=== PATIENT | male | born 1985 | race Caucasian/White ===

== ENCOUNTER 2021-09-14 15:04 | Inpatient (IN) ==
--- NOTE | 2021-09-14 15:41 | XRay Report ---
XR chest 1V portable CLINICAL HISTORY: Sepsis. Follow-up airspace opacities with history of cough COMPARISON STUDY: 09/08/2021 TECHNIQUE: 1 view of the chest FINDINGS: Single frontal view of the chest demonstrates the cardiomediastinal silhouette to be within normal li mits. Compared to the previous examination, there are now extensive patchy interstitial and alveolar opacities are present bilaterally. The findings are most characteristic of a viral type pneumonitis. Covid 19 pneumonia should be excluded. There is no evidence for pleural effusion. There is no evidenc e for vascular congestion. There is no acute osseous pathology. IMPRESSION: Compared to the previous examination, there are now extensive patchy interstitial and neno eolar opacities bilaterally, left greater than right, characteristic of a viral type pneumonitis and probable Covid 19 pneumonia. ACT 112: Negative or not required by law. Electronically signed by: Nagi Crawford M.D. 09/14/2021 3:40 PM
[2021-09-14] MEDS ORDERED: dexAMETHasone**PF** 10 MG/ML VIAL IV ONE (15:42)
--- NOTE | 2021-09-14 15:48 | Emergency Department Note ---
Impression & Plan 2019 novel coronavirus-infected pneumonia (NCIP), Hypoxia, Acute respiratory distress ED Provider Note NAME: JB MARRERO AGE: 36 SEX: M : 1985 ARRIVES VIA: Walk-In INFORMANT: Patient, ED PROVIDER(S): Juan Gallo DO CHIEF COMPLAINT: Shortness of breath HPI: The patient is a 36-year-old male who presented to the emergency department for an evaluation of shortness of breath. The patient was seen in our facility recently with similar complaints. He has had symptoms for approximately 1 week. He started noticing cough and difficulty breathing. He was seen in our facility and had an extensive work-up which included CT of the chest. He was noted to have pneumonia and was started on antibiotics. At that time his Covid test was pending. He was called 24 hours later and was told his Covid test was positive. The patient has been trying to manage the symptoms at home. Over the last 48 hours he has noticed significant increase in his symptoms including shortness of breath and cough. The patient is a former smoker. He does not normally wear oxygen. He states he has very severe symptoms especially with any ambulation. He is been using his outpatient medications without relief. ROS: See above HPI for pertinent positives & negatives. A total of 10 systems r eviewed and were otherwise negative. PAST MEDICAL HISTORY: See Below PAST SURGICAL HISTORY: See Below FAMILY HISTORY: See Below SOCIAL HISTORY: See Below HOME MEDICATIONS: See Below ALLERGIES: See Below VITALS: See Below PHYSICAL EXAMINATION: GENERAL: Patient is awake alert in no acute distress patient is resting comfortably and showing no signs of anxiety EYES: The conjunctivae are clear. The pupils are round and reactive. EARS, NOSE, MOUTH AND THROAT: The nose is without any evidence of any deformity. Mucous membranes are moist. Tongue is midline. NECK: The neck is nontender and supple. RESPIRATORY: Near absent breath sounds are noted throughout. Shallow respirations were noted. There were crackles noted in all lung [place]. CARDIOVASCULAR: Tachycardic rate with regular rhythm was noted. There is no murmur. GASTROINTESTINAL: The abdomen is soft. Abdomen is nontender. MUSCULOSKELETAL/EXTREMITIES: There is no evidence of gross deformity full range of motion is noted in the hips and shoulders. SKIN: Skin is warm and dry. Trace pedal edema was noted bilaterally. NEUROLOGIC: Patient is awake alert and oriented x3. MEDICAL DECISION MAKING: The patient is a 36-year-old male who presented to the emergency department for an evaluation of difficulty breathing. The patient was seen in our facility and diagnosed with COVID-19 6 days ago. Initially he was seen and diagnosed as pneumonia as his Covid swab was pending. The patient was started on antibiotics as well as other medications. He returns today because of worsening symptoms. He noted that his difficulty breathing has significantly worsened especially over the course the last 48 hours. He was found to have oxygen saturation that was very low. He was brought directly back to room A9. He was evaluated by myself and was placed on submental oxygen. He was then placed on high flow nasal cannula. The patient's condition slowly improved. I discussed the patient's laboratory and radiographic studies with him. Given his degree of symptoms I discussed his case with the on-call [facility]ist. They have agreed to evaluate the patient in the emergency department for further management and disposition. The patient did have a complete work-up 6 days ago which included a CT angiography of the chest. The patient was also started on dexamethasone in the emergency department. Triage Nursing notes reviewed. Prior medical records reviewed Vital Signs: reviewed and remarkable for hypoxia and tachycardia. Differential diagnosis: Reactive airway disease, pneumonia, pneumothorax, COPD, CHF, infections, cardiac ischemia, pulmonary embolism, musculoskeletal, gastrointestinal, as well as other pathologies. ER treatment provided: See below Diagnostics interpreted by me: ECG: EKG was obtained in the emergency department. My interpretation is sinus tachycardia at 109 bpm. There is no ectopy. There is no acute ST segment abnormalities noted. This was compared to a tracing from November 282019. There was an increase in the ventricular rate otherwise no specific changes were noted. Cardiac Monitoring: An order was placed for continuous cardiac monitoring. The monitor shows a rate of 110 bpm with sinus tachycardia. Laboratory studies: As stated above and show below. Imaging studies: See below Consultation(s): I discussed this case with Dr. Horton who is on-call for the [facility] group. She is agreed to evaluate the patient in the emergency department for further management and disposition. ED COURSE: Procedures: none Critical Care: I have personally spent greater than 35 minutes of critical care time in the direct management of this patient. This includes bedside care, interpretation of diagnostic studies, and testing, discussion with consultants, patient, and family members, and other required patient management activities. This 35 minutes is in excess of all separately billable procedures. Past Med/Surg History Medical History Open right arm fracture Pilonidal cyst Pneumonia due to COVID-19 virus Surgical History H/O hernia repair Family History Other Family history non-contributory Family history unknown Foster child Social History Smoking Status: Former smoker Age Started Using Tobacco: 11; Age Quit Using Tobacco: 30; packs per day: 2; Hx Alcohol Use: No Hx Substance Use: No Preferred Language: Czech marital status: Single Current Living Situation: Alone Feels Safe at Home: Yes Diet Comment: low sugar Dental Care, Regularly: No Physical Activity Frequency: 3-4 Times per Week Seatbelt Use: never Sunscreen Use: No Allergies Allergies Allergy/AdvReac Type Severity Reaction Status Date / Time No Known Allergies Allergy Unverified 09/08/21 14:47 Home Meds Previous Rx's Medication Instructions Recorded albuterol sulfate 90 mcg/actuation 2 inh INHALATION Q6H PRN #6.7 g 09/08/21 aerosol inhaler (Ventolin HFA) azithromycin 250 mg tablet See Rx Instructions .ROUTE 09/08/21 (Zithromax) .COMPLEX #6 tab cefdinir 300 mg capsule 300 mg PO BID 7 Days #14 cap 09/08/21 Results & Data (ED) Vital Signs Vital Signs - 24 hr 09/14/21 15:18 09/14/21 15:54 09/14/21 16:32 Temperature 37.1 C Temperature Source Temporal Artery Scan Pulse Rate 125 H 110 H Pulse Rate [Right Finger] 122 H 110 H Respiratory Rate 18 20 22 Respiratory Effort / Characteristics Non-Labored Non-Labored Spontaneous Respiratory Depth Normal Blood Pressure 157/92 H Blood Pressure [Left Arm] 110/81 Blood Pressure Mean 113 Blood Pressure Mean [Left Arm] 90 Blood Pressure Position [Left Arm] Sitting Pulse Oximetry 53 L 93 91 Oxygen Delivery Method Room Air High Flow Nasal Cannula High Flow Nasal Cannula Oxygen Flow Rate 30 Fraction of Inspired Oxygen 50 Sepsis Recent Fever Within 48 Hours No Sepsis New/Unexplained Change in Mental Status No Sepsis Action Taken by Nursing No Action Required Pulse Oximetry Post Tiitration 91 Home Medications Current Medication List: was personally reviewed by me Laboratory Data Attestation: I reviewed the patient's lab results. Result diagrams: 09/14/21 15:43 09/14/21 15:43 Lab Results 09/14/21 09/14/21 09/14/21 Range/Units 15:43 15:43 15:43 WBC 6.35 (4.8-10.8) K/uL RBC 5.48 (4.7-6.1) M/uL Hgb 15.6 (14.0-18.0) g/dL Hct 46.5 (42-52) % MCV 84.9 (80-100) fL MCH 28.5 (25-34) pg MCHC 33.5 (32-36) g/dL RDW Std Deviation 43.1 (36.4-46.3) fL RDW Coeff of Nydia 13.8 (11.5-14.5) % Plt Count 194 (130-400) K/uL MPV 9.8 (7.4-10.4) fL Immature Gran % (Auto) 0.6 % Neut % (Auto) 76.5 % Lymph % (Auto) 17.0 % Platte % (Auto) 5.4 % Eos % (Auto) 0.3 % Baso % (Auto) 0.2 % Neut # (Auto) 4.86 (1.4-6.5) K/uL Lymph # (Auto) 1.08 L (1.2-3.4) K/uL Platte # (Auto) 0.34 (0.11-0.59) K/uL Eos # (Auto) 0.02 (0-0.5) K/uL Baso # (Auto) 0.01 (0-0.2) K/uL Immature Gran # (Auto) 0.04 H (0.00-0.02) K/uL PT 11.8 (9.0-12.0) Seconds INR 1.2 H (0.9-1.1) APTT 28.4 (21.0-31.0) Seconds PTT Ratio 1.1 VBG pH (7.36-7.41) VBG pCO2 (38-50) mmHg VBG pO2 mmHg VBG HCO3 mmol/L VBG O2 Saturation % VBG Base Excess mEq/L Barometric Pressure mm/Hg Sodium 136 (136-145) mmol/L Potassium 3.6 (3.5-5.1) mmol/L Chloride 98 (98-107) mmol/L Carbon Dioxide 29 (21-32) mmol/L Anion Gap 9.0 (3-11) BUN 9 (7-18) mg/dl Creatinine 0.62 (0.6-1.4) mg/dl Est Cr Clr Drug Dosing 256.2 ml/min Est GFR ( Amer) 147.9 ml/min Est GFR (Non-Af Amer) 127.6 ml/min BUN/Creatinine Ratio 15.0 (10-20) Glucose 120 H (70-99) mg/dl Lactate (0.4-2.0) mmol/L Calcium 8.5 (8.5-10.1) mg/dl Magnesium 2.2 (1.8-2.4) mg/dl Total Bilirubin 0.5 (0.2-1) mg/dl AST 47 H (15-37) U/L ALT 46 (12-78) U/L Alkaline Phosphatase 49 (45-117) U/L Troponin I < 0.015 (0-0.045) ng/ml NT-Pro-B Natriuret Pep 97 (0-450) pg/ml Total Protein 7.7 (6.4-8.2) gm/dl Albumin 2.6 L (3.4-5.0) gm/dl Globulin 5.1 H (2.5-4.0) gm/dl Albumin/Globulin Ratio 0.5 L (0.9-2) Procalcitonin (0-0.5) ng/ml 09/14/21 09/14/21 09/14/21 Range/Units 15:46 15:47 15:47 WBC (4.8-10.8) K/uL RBC (4.7-6.1) M/uL Hgb (14.0-18.0) g/dL Hct (42-52) % MCV (80-100) fL MCH (25-34) pg MCHC (32-36) g/dL RDW Std Deviation (36.4-46.3) fL RDW Coeff of Nydia (11.5-14.5) % Plt Count (130-400) K/uL MPV (7.4-10.4) fL Immature Gran % (Auto) % Neut % (Auto) % Lymph % (Auto) % Platte % (Auto) % Eos % (Auto) % Baso % (Auto) % Neut # (Auto) (1.4-6.5) K/uL Lymph # (Auto) (1.2-3.4) K/uL Platte # (Auto) (0.11-0.59) K/uL Eos # (Auto) (0-0.5) K/uL Baso # (Auto) (0-0.2) K/uL Immature Gran # (Auto) (0.00-0.02) K/uL PT (9.0-12.0) Seconds INR (0.9-1.1) APTT (21.0-31.0) Seconds PTT Ratio VBG pH 7.44 H (7.36-7.41) VBG pCO2 49 (38-50) mmHg VBG pO2 34 mmHg VBG HCO3 32 mmol/L VBG O2 Saturation 62.6 % VBG Base Excess 6.7 mEq/L Barometric Pressure 726.5 mm/Hg Sodium (136-145) mmol/L Potassium (3.5-5.1) mmol/L Chloride (98-107) mmol/L Carbon Dioxide (21-32) mmol/L Anion Gap (3-11) BUN (7-18) mg/dl Creatinine (0.6-1.4) mg/dl Est Cr Clr Drug Dosing ml/min Est GFR ( Amer) ml/min Est GFR (Non-Af Amer) ml/min BUN/Creatinine Ratio (10-20) Glucose (70-99) mg/dl Lactate 1.5 (0.4-2.0) mmol/L Calcium (8.5-10.1) mg/dl Magnesium (1.8-2.4) mg/dl Total Bilirubin (0.2-1) mg/dl AST (15-37) U/L ALT (12-78) U/L Alkaline Phosphatase (45-117) U/L Troponin I (0-0.045) ng/ml NT-Pro-B Natriuret Pep (0-450) pg/ml Total Protein (6.4-8.2) gm/dl Albumin (3.4-5.0) gm/dl Globulin (2.5-4.0) gm/dl Albumin/Globulin Ratio (0.9-2) Procalcitonin < 0.05 (0-0.5) ng/ml Administered Medications Discontinued Medications Dexamethasone Sodium Phosphate (DexamethasonePf 10 Mg/Ml Vial) 10 mg IV NOW ONE Stop: 09/14/21 15:43 Last Admin: 09/14/21 16:31 Dose: 10 mg Documented by: [id number] Imaging Data Radiologist's Impression: Chest X-Ray 09/14/21 15:24 XR chest 1V portable CLINICAL HISTORY: Sepsis. Follow-up airspace opacities with history of cough COMPARISON STUDY: 09/08/2021 TECHNIQUE: 1 view of the chest FINDINGS: Single frontal view of the chest demonstrates the cardiomediastinal silhouette to be within normal limits. Compared to the previous examination, there are now extensive patchy interstitial and alveolar opacities are present bilaterally. The findings are most characteristic of a viral type pneumonitis. Covid 19 pneu monia should be excluded. There is no evidence for pleural effusion. There is no evidence for vascular congestion. There is no acute osseous pathology. IMPRESSION: Compared to the previous examination, there are now extensive patchy interstitial and alveolar opacities bilaterally, left greater than right, characteristic of a viral type pneumonitis and probable Covid 19 pneumonia. ACT 112: Negative or not required by law. Electronically signed by: Nagi Crawford M.D. 09/14/2021 3:40 PM Discharge Plan Visit Data Chief Complaint: Shortness of Breath/Dyspnea Stated Complaint: SOB,COVID + ED Provider: Juan Gallo Discharge Problem: 2019 novel coronavirus-infected pneumonia (NCIP), Hypoxia, Acute respiratory distress Patient Disposition: Being Evaluated by Hospitalist Forms Stand Alone Forms: [facility] Prescriptions Prescriptions: No Action cefdinir 300 mg capsule 300 mg PO BID 7 Days Qty: 14 RF: 0 azithromycin [Zithromax] 250 mg tablet See Rx Instructions .ROUTE .COMPLEX Qty: 6 RF: 0 albuterol sulfate [Ventolin HFA] 90 mcg/actuation HFA aerosol inhaler 2 inh inhalation Q6H PRN (Reason: shortness of breath or wheezing) Qty: 6.7 RF: 0 Referrals Referrals: PCP,NO [Primary Care Provider] -
[2021-09-14 15:59] LABS: Basophils # (auto) 0.01 K/uL (0-0.2); Basophils % (auto) 0.2 %; Eosinophils # (auto) 0.02 K/uL (0-0.5); Eosinophils % (auto) 0.3 %; Hematocrit (blood only) 46.5 % (42-52); Hemoglobin 15.6 g/dL (14.0-18.0); Immature Granulocytes # (auto) 0.04 K/uL (0.00-0.02); Immature Granulocytes % (auto) 0.6 %; Lymphocytes # (auto) 1.08 K/uL (1.2-3.4); Mean Corpuscular Hemoglobin 28.5 pg (25-34); Mean Corpuscular Hgb Conc 33.5 g/dL (32-36); Mean Corpuscular Volume 84.9 fL (80-100); Mean Platelet Volume 9.8 fL (7.4-10.4); Monocytes # (auto) 0.34 K/uL (0.11-0.59); Monocytes % (auto) 5.4 %; Neutrophils # (auto) 4.86 K/uL (1.4-6.5); Neutrophils % (auto) 76.5 %; Platelet Count 194 K/uL (130-400); RDW Coefficient of Variation 13.8 % (11.5-14.5); RDW Standard Deviation 43.1 fL (36.4-46.3); Red Blood Count 5.48 M/uL (4.7-6.1); White Blood Count 6.35 K/uL (4.8-10.8)
[2021-09-14 16:02] LABS: Base Excess VBG 6.7 mEq/L; Oxygen Saturation VBG 62.6 %; pH VBG 7.44 (7.36-7.41)
[2021-09-14 16:10] LABS: INR 1.2 (0.9-1.1); Partial Thromboplastin Ratio 1.1; Partial Thromboplastin Time 28.4 Seconds (21.0-31.0); Prothrombin Time 11.8 Seconds (9.0-12.0)
[2021-09-14 16:19] LABS: Alanine Aminotransferase 46 U/L (12-78); Albumin Level 2.6 gm/dl (3.4-5.0); Aspartate Aminotransferase 47 U/L (15-37); Blood Urea Nitrogen 9 mg/dl (7-18); Calcium 8.5 mg/dl (8.5-10.1); Carbon Dioxide 29 mmol/L (21-32); Chloride 98 mmol/L (98-107); Creatinine Clr Calc Pharmacy 256.2 ml/min; Est GFR (African American) 147.9 ml/min; Est GFR (Non-African American) 127.6 ml/min; Glucose 120 mg/dl (70-99); Magnesium 2.2 mg/dl (1.8-2.4); Potassium 3.6 mmol/L (3.5-5.1); Sodium 136 mmol/L (136-145)
[2021-09-14 16:24] LABS: Albumin Globulin Ratio 0.5 (0.9-2); Alkaline Phosphatase 49 U/L (45-117); Bilirubin,Total 0.5 mg/dl (0.2-1); Globulin 5.1 gm/dl (2.5-4.0); NT Pro B Type Natriuretic Pept 97 pg/ml (0-450); Total Protein 7.7 gm/dl (6.4-8.2); Troponin I < 0.015 ng/ml (0-0.045)
--- NOTE | 2021-09-14 17:20 | Electrocardiogram Report ---
Test Reason : Blood Pressure : / mmHG Vent. Rate : 109 BPM Atrial Rate : 109 BPM P-R Int : 130 ms QRS Dur : 094 ms QT Int : 336 ms P-R-T Axes : 049 013 038 degrees QTc Int : 452 ms Poor data quality, interpretation may be adversely affected Sinus tachycardia Otherwise normal ECG When compared with ECG of 28-NOV-2019 13:58, No significant change was found Confirmed by Abe Lopez ([id number]) on 09/14/2021 5:19:43 PM Referred By: REFERRED SELF Confirmed By:Harris Lopez
--- NOTE | 2021-09-14 18:37 | History & Physical Report ---
Date of Service September 14, 2021 Assessment & Plan (1) 2019 novel coronavirus-infected pneumonia (NCIP): Plan: Patient now on day 10-11 of symptoms at the time of admission. With worsening Covid pneumonia and acute respiratory failure with hypoxia. He completed 6 days of azithromycin and cefdinir as an outpatient, procalcitonin is now negative-do not suspect bacterial pneumonia at this point With morbid obesity and DM 2 as risk factors for severe disease for him. He is unvaccinated. CRP is significantly elevated at 15 and AST mildly elevated Was requiring high flow nasal cannula at 30 L and 50% FiO2 immediately upon arrival in the ER for pulse ox in the 50s on room air He is outside of the window for treatment with Remdesivir -Admit to PCU on COVID cautions -Start dexamethasone 6 mg IV once daily x10-day course -Start baricitinib 4 mg p.o. once daily x14-day course for shorter course if discharged prior to then, should be discontinued if requires intubation -Start incentive spirometer and flutter valve -Start duo nebs scheduled 4 times daily -Encourage prone or side positioning -Continue high flow nasal cannula for now, can progress to CPAP or mechanical ventilation if needed -Lovenox 0.5 mg/KG SQ twice daily for DVT prophylaxis -Start Protonix 40 mg once daily for indigestion which will likely be worsened by corticosteroids -Follow CBC, CMP, CRP in the morning (2) Hypoxia: Plan: As above, secondary to Covid-19 with pneumonia Also has a history of [id number] smoking-quit 6 years ago Continue duo nebs, steroids, pulmonary toilet (3) Obesity: Plan: BMI 49.8 This is a significant risk factor for severe disease -Needs weight loss (4) Hyperglycemia: Plan: Was counseled in 2020 to have further testing for diabetes after having a random blood glucose in the 400s Blood sugar here so far is 122, but given that he will be on corticosteroids, will add Accu-Cheks and supplemental NovoLog May need to add on Lantus or NPH if develops significant hyperglycemia Check hemoglobin A1c in the morning ADA diet (5) Former smoker: Plan: As noted above He quit at age 30 (6) Transaminitis: Plan: Mild elevation of AST, likely secondary to Covid-19 Follow LFTs Plan: DVT prophylaxis-Lovenox 80 mg/KG SQ twice daily, SCDs Disposition-admit to PCU Full code Patient designates his girlfriend, Cara Carrasco, as his healthcare power of commonwealth attorney-I advised him to discuss with service excellence about making this official on paper. He reports he does have some immediate family members that are living but he has no contact with them and does not know how to reach them. History of Present Illness Chief Complaint: Shortness of breath, Covid Primary Care Provider: NO PCP This patient is a 36-year-old male with a history of morbid obesity, diabetes mellitus type 2, and a [id number] smoking history, who does not follow routinely with the PCP, who presents to the ER with worsening shortness of breath. He was seen in the ER on 09/08 and diagnosed with suspected Covid-19 with pneumonia (it took 24 hours for the Covid test to be resulted) but was discharged home on cefdinir, azithromycin, and an albuterol inhaler. His pulse ox at that time was 92-93% on room air. He was discharged home with a pulse ox as well. His Covid-19 test came back positive the next day and he was contacted with the results. Of note, he is unvaccinated for Covid-19. His symptoms originally started around 09/03-09/04 with decreased appetite, cough with some brownish phlegm, sweats/chills and body aches. He returned to the ER today with worsening shortness of breath that was much worse with any ambulation. He tried taking the albuterol inhaler without relief. In the ER, his pulse ox was noted to be in the 50s on room air with a good waveform and he was placed on high flow nasal cannula with improvement of his pulse ox to the low 90s. He reports even when his POx was in the 50s, he denies feeling SOB, but reports feeling very lightheaded. His chest x-ray showed significant progression with bilateral multifocal infiltrates left greater than right. His CBC, VBG, and CMP were all within normal limits except for a mild elevation in AST to 47. A lactate was normal, troponin was negative, procalcitonin was negative, and proBNP was normal at 97. His ECG showed sinus tachycardia with rate of 109, otherwise normal. He will be admitted for Covid-19 with pneumonia and acute respiratory failure with hypoxia. Allergies Allergy/AdvReac Type Severity Reaction Status Date / Time No Known Allergies Allergy Unverified 09/08/21 14:47 Home Medications Medication Instructions Recorded Confirmed Type albuterol sulfate 90 mcg/actuation 2 inh INHALATION Q6H PRN #6.7 g 09/08/21 09/14/21 Rx aerosol inhaler (Ventolin HFA) azithromycin 250 mg tablet See Rx Instructions .ROUTE 09/08/21 09/14/21 Rx (Zithromax) .COMPLEX #6 tab cefdinir 300 mg capsule 300 mg PO BID 7 Days #14 cap 09/08/21 09/14/21 Rx Past Med/Surg History Medical History (Updated 09/14/21 @ 18:37 by Gauri Horton MD) Former smoker Obesity Open right arm fracture Pilonidal cyst Pneumonia due to COVID-19 virus Surgical History H/O hernia repair Family History Other Family history non-contributory Family history unknown Foster child Social History Smoking Status: Former smoker Age Started Using Tobacco: 11; Age Quit Using Tobacco: 30; packs per day: 2; Hx Alcohol Use: No Hx Substance Use: No Preferred Language: Lithuanian marital status: Single Current Living Situation: Alone Feels Safe at Home: Yes Diet Comment: low sugar Dental Care, Regularly: No Physical Activity Frequency: 3-4 Times per Week Seatbelt Use: never Sunscreen Use: No Review of Systems Review of Systems: All systems reviewed & are unremarkable except as noted in HPI & below he denies chest pain, no diarrhea now but did have some after taking azithromycin no urinary issues no nausea or vomiting but has had decreased appetite He does report significant indigestion that has worsened since having Covid-has been taking Pepcid Physical Exam Constitutional: WD/WN, vitals as above + morbidly obese Eyes: PERRL, conjunctivae normal, anicteric sclerae ENMT: external ear and nose normal, oropharynx normal Neck: trachea midline, no thyromegaly Respiratory: normal respiratory effort (With nasal cannula in place); no cough Auscultation: + diminished lung sounds (Throughout all lung calhoun) and + crackles (Lower lung calhoun); no rhonchi and no wheezes Cardiovascular: RRR, no murmur, no edema Chest (Breasts): Chest: normal inspection of chest Gastrointestinal (Abdomen): normal bowel sounds, soft, nontender, no hepatosplenomegaly Musculoskeletal: Extremities: extremities normal to inspection; no cyanosis and no clubbing Skin: no rashes, warm and dry Neurologic: moves all extremities and awake; no focal motor deficits Psychiatric: A+Ox3, euthymic affect Lymphatic: no lymphedema Results & Data Results & Data ([facility]) Vital Signs (Past 12 Hours) Vital Signs Temp Pulse Pulse Resp BP BP Pulse Ox 09/14/21 16:32 110 H 110 H 22 110/81 91 09/14/21 15:54 122 H 20 93 09/14/21 15:18 37.1 C 125 H 18 157/92 H 53 L Laboratory Results 09/14/21 09/14/21 09/14/21 Range/Units 15:47 15:47 15:46 WBC (4.8-10.8) K/uL RBC (4.7-6.1) M/uL Hgb (14.0-18.0) g/dL Hct (42-52) % MCV (80-100) fL MCH (25-34) pg MCHC (32-36) g/dL RDW Std Deviation (36.4-46.3) fL RDW Coeff of Nydia (11.5-14.5) % Plt Count (130-400) K/uL MPV (7.4-10.4) fL Immature Gran % (Auto) % Neut % (Auto) % Lymph % (Auto) % Valencia % (Auto) % Eos % (Auto) % Baso % (Auto) % Neut # (Auto) (1.4-6.5) K/uL Lymph # (Auto) (1.2-3.4) K/uL Valencia # (Auto) (0.11-0.59) K/uL Eos # (Auto) (0-0.5) K/uL Baso # (Auto) (0-0.2) K/uL Immature Gran # (Auto) (0.00-0.02) K/uL PT (9.0-12.0) Seconds INR (0.9-1.1) APTT (21.0-31.0) Seconds PTT Ratio VBG pH 7.44 H (7.36-7.41) VBG pCO2 49 (38-50) mmHg VBG pO2 34 mmHg VBG HCO3 32 mmol/L VBG O2 Saturation 62.6 % VBG Base Excess 6.7 mEq/L Barometric Pressure 726.5 mm/Hg Sodium (136-145) mmol/L Potassium (3.5-5.1) mmol/L Chloride (98-107) mmol/L Carbon Dioxide (21-32) mmol/L Anion Gap (3-11) BUN (7-18) mg/dl Creatinine (0.6-1.4) mg/dl Est Cr Clr Drug Dosing ml/min Est GFR ( Amer) ml/min Est GFR (Non-Af Amer) ml/min BUN/Creatinine Ratio (10-20) Glucose (70-99) mg/dl Lactate 1.5 (0.4-2.0) mmol/L Calcium (8.5-10.1) mg/dl Magnesium (1.8-2.4) mg/dl Total Bilirubin (0.2-1) mg/dl AST (15-37) U/L ALT (12-78) U/L Alkaline Phosphatase (45-117) U/L Troponin I (0-0.045) ng/ml NT-Pro-B Natriuret Pep (0-450) pg/ml Total Protein (6.4-8.2) gm/dl Albumin (3.4-5.0) gm/dl Globulin (2.5-4.0) gm/dl Albumin/Globulin Ratio (0.9-2) Procalcitonin < 0.05 (0-0.5) ng/ml 09/14/21 09/14/21 09/14/21 Range/Units 15:43 15:43 15:43 WBC 6.35 (4.8-10.8) K/uL RBC 5.48 (4.7-6.1) M/uL Hgb 15.6 (14.0-18.0) g/dL Hct 46.5 (42-52) % MCV 84.9 (80-100) fL MCH 28.5 (25-34) pg MCHC 33.5 (32-36) g/dL RDW Std Deviation 43.1 (36.4-46.3) fL RDW Coeff of Nydia 13.8 (11.5-14.5) % Plt Count 194 (130-400) K/uL MPV 9.8 (7.4-10.4) fL Immature Gran % (Auto) 0.6 % Neut % (Auto) 76.5 % Lymph % (Auto) 17.0 % Valencia % (Auto) 5.4 % Eos % (Auto) 0.3 % Baso % (Auto) 0.2 % Neut # (Auto) 4.86 (1.4-6.5) K/uL Lymph # (Auto) 1.08 L (1.2-3.4) K/uL Valencia # (Auto) 0.34 (0.11-0.59) K/uL Eos # (Auto) 0.02 (0-0.5) K/uL Baso # (Auto) 0.01 (0-0.2) K/uL Immature Gran # (Auto) 0.04 H (0.00-0.02) K/uL PT 11.8 (9.0-12.0) Seconds INR 1.2 H (0.9-1.1) APTT 28.4 (21.0-31.0) Seconds PTT Ratio 1.1 VBG pH (7.36-7.41) VBG pCO2 (38-50) mmHg VBG pO2 mmHg VBG HCO3 mmol/L VBG O2 Saturation % VBG Base Excess mEq/L Barometric Pressure mm/Hg Sodium 136 (136-145) mmol/L Potassium 3.6 (3.5-5.1) mmol/L Chloride 98 (98-107) mmol/L Carbon Dioxide 29 (21-32) mmol/L Anion Gap 9.0 (3-11) BUN 9 (7-18) mg/dl Creatinine 0.62 (0.6-1.4) mg/dl Est Cr Clr Drug Dosing 256.2 ml/min Est GFR ( Amer) 147.9 ml/min Est GFR (Non-Af Amer) 127.6 ml/min BUN/Creatinine Ratio 15.0 (10-20) Glucose 120 H (70-99) mg/dl Lactate (0.4-2.0) mmol/L Calcium 8.5 (8.5-10.1) mg/dl Magnesium 2.2 (1.8-2.4) mg/dl Total Bilirubin 0.5 (0.2-1) mg/dl AST 47 H (15-37) U/L ALT 46 (12-78) U/L Alkaline Phosphatase 49 (45-117) U/L Troponin I < 0.015 (0-0.045) ng/ml NT-Pro-B Natriuret Pep 97 (0-450) pg/ml Total Protein 7.7 (6.4-8.2) gm/dl Albumin 2.6 L (3.4-5.0) gm/dl Globulin 5.1 H (2.5-4.0) gm/dl Albumin/Globulin Ratio 0.5 L (0.9-2) Procalcitonin (0-0.5) ng/ml Diagnostic Findings Chest X-Ray 09/14/21 15:24 XR chest 1V portable CLINICAL HISTORY: Sepsis. Follow-up airspace opacities with history of cough COMPARISON STUDY: 09/08/2021 TECHNIQUE: 1 view of the chest FINDINGS: Single frontal view of the chest demonstrates the cardiomediastinal silhouette to be within normal limits. Compared to the previous examination, there are now extensive patchy interstitial and alveolar opacities are present bilaterally. The findings are most characteristic of a viral type pneumonitis. Covid 19 pneumonia should be excluded. There is no evidence for pleural effusion. There is no evidence for vascular congestion. There is no acute osseous pathology. IMPRESSION: Compared to the previous examination, there are now extensive patchy interstitial and alveolar opacities bilaterally, left greater than right, characteristic of a viral type pneumonitis and probable Covid 19 pneumonia. ACT 112: Negative or not required by law. Electronically signed by: Nagi Crawford M.D. 09/14/2021 3:40 PM ECG Additional Comments: As per HPI Code Status & VTE Plan Code Status Full code VTE Prophylaxis Plan VTE Prophylaxis will be ordered: Yes PG Care Time/CCT Total # of Minutes Spent Total Time Spent with Patient: Total time spent is greater than 50% in coordination of care (as documented) at patient's floor/unit and/or counseling patient: Coding Level of Care Code 80299 Initial Inpt Care Lvl 3 Diagnoses Obesity E66.9 2019 novel coronavirus-infected pneumonia (NCIP) U07.1; J12.82 Hypoxia R09.02 Hyperglycemia R73.9 Former smoker Z87.891 Transaminitis R74.01
[2021-09-14] MEDS ORDERED: GLUCOSE 10 TABS/TUBE PO PRN (20:51)
[2021-09-14] MEDS ORDERED: POLYETHYLENE (MIRALAX) 17 GM PACK PO PRN (20:51)
[2021-09-14] MEDS ORDERED: BARICITINIB COMMUNICATION ONE (20:51)
[2021-09-14] MEDS ORDERED: GLUCAGON FOR INJ 1 MG VIAL SQ PRN (20:51)
[2021-09-14] MEDS ORDERED: ONDANSETRON INJ 2 MG/ML 2 ML VIAL IV PRN (20:51)
[2021-09-14] MEDS ORDERED: CARBOHYDRATES FOR HYPOGLYCEMIA PO PRN (20:51)
[2021-09-14] MEDS ORDERED: ACETAMINOPHEN 325 MG TAB PO PRN (20:51)
[2021-09-14] MEDS ORDERED: DEXTROSE 50% 50 ML SYRINGE IV PRN (20:51)
[2021-09-14] MEDS ORDERED: GLUCOSE 40% GEL 15 GM TUBE PO PRN (20:51)
[2021-09-14] MEDS: ENOXAPARIN 80 MG/0.8 ML SYR SQ SCH (22:08)
[2021-09-14] MEDS: ALBUT/IPRATROP 3MG/0.5MG NEB 3 ML VIAL NEB SCH (22:09)
[2021-09-14] MEDS: PANTOprazole 40 MG TAB PO SCH (22:09)
[2021-09-14] MEDS: INSULIN ASPART 100 UNITS/ML 3 ML PEN SC SCH (22:18)
[2021-09-15 07:29] LABS: Basophils # (auto) 0.01 K/uL (0-0.2); Basophils % (auto) 0.3 %; Hematocrit (blood only) 44.9 % (42-52); Hemoglobin 14.7 g/dL (14.0-18.0); Immature Granulocytes # (auto) 0.03 K/uL (0.00-0.02); Immature Granulocytes % (auto) 0.9 %; Lymphocytes # (auto) 0.91 K/uL (1.2-3.4); Mean Corpuscular Hemoglobin 28.1 pg (25-34); Mean Corpuscular Hgb Conc 32.7 g/dL (32-36); Mean Corpuscular Volume 85.7 fL (80-100); Monocytes % (auto) 8.6 %; Neutrophils # (auto) 2.25 K/uL (1.4-6.5); Neutrophils % (auto) 64.2 %; Platelet Count 207 K/uL (130-400); RDW Coefficient of Variation 13.9 % (11.5-14.5); RDW Standard Deviation 43.7 fL (36.4-46.3); Red Blood Count 5.24 M/uL (4.7-6.1)
[2021-09-15] MEDS: ALBUT/IPRATROP 3MG/0.5MG NEB 3 ML VIAL NEB SCH ×4 (07:37→20:22)
[2021-09-15 07:52] LABS: Estimated Average Glucose 166 mg/dl; Hemoglobin A1C 7.4 % (4.5-5.6)
[2021-09-15 07:58] LABS: Albumin Level 2.5 gm/dl (3.4-5.0); BUN Creatinine Ratio 17.3 (10-20); Calcium 8.6 mg/dl (8.5-10.1); Est GFR (African American) 141.6 ml/min; Est GFR (Non-African American) 122.1 ml/min; Potassium 3.8 mmol/L (3.5-5.1)
[2021-09-15 08:01] LABS: Albumin Globulin Ratio 0.5 (0.9-2); Bilirubin,Total 0.5 mg/dl (0.2-1); C Reactive Protein 14.4 mg/dl (0-0.29); Total Protein 7.5 gm/dl (6.4-8.2)
[2021-09-15] MEDS: BARICITINIB 2 MG TAB PO SCH (10:16)
[2021-09-15] MEDS: dexAMETHasone 6 MG in SYRINGE 0 ML IV SCH (10:17)
[2021-09-15] MEDS: PANTOprazole 40 MG TAB PO SCH (10:17)
[2021-09-15] MEDS: INSULIN ASPART 100 UNITS/ML 3 ML PEN SC SCH ×4 (12:17→20:57)
--- NOTE | 2021-09-15 12:30 | Hospitalist Progress Note ---
Date of Service September 15, 2021 Assessment & Plan (1) 2019 novel coronavirus-infected pneumonia (NCIP): Plan: Patient now on day 10-11 of symptoms at the time of admission. With worsening Covid pneumonia and acute respiratory failure with hypoxia. He completed 6 days of azithromycin and cefdinir as an outpatient, procalcitonin is now negative-do not suspect bacterial pneumonia at this point With morbid obesity and DM 2 as risk factors for severe disease for him. He is unvaccinated. CRP is significantly elevated at 15 and AST mildly elevated Was requiring high flow nasal cannula at 30 L and 50% FiO2 immediately upon arrival in the ER for pulse ox in the 50s on room air continue dexamethasone 6mg IV daily, day 2 continue baricitinib 4mg daily, day 2 give Lasix 20mg IV with potassium now, keep lungs dry, repeat in the morning flutter valve and incentive spirometer encourage him to lay on his side or prone if possible he is eating and drinking well (2) Hypoxia: Plan: As above, secondary to Covid-19 with pneumonia Also has a history of [id number] smoking-quit 6 years ago Continue duo nebs, steroids, pulmonary toilet stable on 30L and 60%, not in distress give Lasix and follow response (3) Obesity: Plan: BMI 49.8 This is a significant risk factor for severe disease -Needs weight loss (4) Hyperglycemia: Plan: Was counseled in 2019 to have further testing for diabetes after having a random blood glucose in the 400s Blood sugar here so far is 122, but given that he will be on corticosteroids, will add Accu-Cheks and supplemental NovoLog Hb A1c is 7.4%, so he is a diabetic sugars stable thus far just on Novolog, continue to monitor closey if they go high, would add NPH consult automatic grinding machine operator given his HbA1c (5) Former smoker: Plan: As noted above He quit at age 30 (6) Transaminitis: Plan: Mild elevation of AST, likely secondary to Covid-19 Follow LFTs Plan: DVT prophylaxis-Lovenox 80 mg/KG SQ twice daily, SCDs Disposition-admit to PCU Full code Patient designates his girlfriend, Cara Carrasco, as his healthcare power of real estate attorney-I advised him to discuss with service excellence about making this official on paper. He reports he does have some immediate family members that are living but he has no contact with them and does not know how to reach them. Admission and Anticipated Discharge Date Admission Date: September 14, 2021 Subjective patient feels better, he is on 30L and 60% FiO2, no distress, saturations are 90% he is eating and drinking quite well he says he has been ill for about 14 days now discussed giving Lasix to dry out lungs, he understands he says he can lay on his side, plans to do that this afternoon reviewed chart and labs Review of Systems Review of Systems: All systems reviewed & are unremarkable except as noted in Subjective Respiratory: + cough, + dyspnea and + dyspnea on exertion Physical Exam Physical Exam: General: well developed, well nourished, obese male, no acute distress, comfortable Neck: supple, trachea midline, normal thyroid Lungs: crackles in bases, otherwise clear, + tachypnea but no accessory muscle use, no distress Heart: regular S1 and S2, no murmur, peripheral pulses normal, capillary refill normal, no edema Abdomen: soft, NT, ND, + BS, no hepatomegaly, normal to percussion Extremities: normal in appearance, no cyanosis, no petechiae, strength is 5/5 bilaterally Neuro: awake, cooperative, moves all extremities, no focal motor deficits, CN II-XII intact, sensation in extremities intact, normal speech Skin: warm, dry, no rash, normal turgor Psych: Awake, alert oriented x 3, euthymic affect Results & Data Results & Data ([facility]) Vital Signs (Past 12 Hours) Vital Signs Temp Pulse Pulse Resp BP Pulse Ox 09/15/21 11:49 36.7 C 91 H 24 132/82 89 L 09/15/21 10:39 69 20 91 09/15/21 08:04 36.3 C L 79 23 114/73 92 09/15/21 07:38 68 20 90 09/15/21 07:00 68 09/15/21 05:11 36.3 C L 88 26 H 127/88 94 09/15/21 04:12 73 28 H 121/81 89 L 09/15/21 02:37 92 H 30 H 106/86 90 09/15/21 00:43 90 28 H 109/73 91 Laboratory Results Laboratory Results - last 24 hr 09/14/21 09/14/21 09/14/21 15:43 15:43 15:43 WBC 6.35 RBC 5.48 Hgb 15.6 Hct 46.5 MCV 84.9 MCH 28.5 MCHC 33.5 RDW Std Deviation 43.1 RDW Coeff of Nydia 13.8 Plt Count 194 MPV 9.8 Immature Gran % (Auto) 0.6 Neut % (Auto) 76.5 Lymph % (Auto) 17.0 Jackson % (Auto) 5.4 Eos % (Auto) 0.3 Baso % (Auto) 0.2 Neut # (Auto) 4.86 Lymph # (Auto) 1.08 L Jackson # (Auto) 0.34 Eos # (Auto) 0.02 Baso # (Auto) 0.01 Immature Gran # (Auto) 0.04 H PT 11.8 INR 1.2 H APTT 28.4 PTT Ratio 1.1 VBG pH VBG pCO2 VBG pO2 VBG HCO3 VBG O2 Saturation VBG Base Excess Barometric Pressure Sodium 136 Potassium 3.6 Chloride 98 Carbon Dioxide 29 Anion Gap 9.0 BUN 9 Creatinine 0.62 Est Cr Clr Drug Dosing 256.2 Est GFR ( Amer) 147.9 Est GFR (Non-Af Amer) 127.6 BUN/Creatinine Ratio 15.0 Glucose 120 H POC Glucose Estimat Average Glucose Hemoglobin A1c Lactate Calcium 8.5 Magnesium 2.2 Total Bilirubin 0.5 AST 47 H ALT 46 Alkaline Phosphatase 49 Troponin I < 0.015 C-Reactive Protein 14.00 H NT-Pro-B Natriuret Pep 97 Total Protein 7.7 Albumin 2.6 L Globulin 5.1 H Albumin/Globulin Ratio 0.5 L Procalcitonin 09/14/21 09/14/21 09/14/21 15:46 15:47 15:47 WBC RBC Hgb Hct MCV MCH MCHC RDW Std Deviation RDW Coeff of Nydia Plt Count MPV Immature Gran % (Auto) Neut % (Auto) Lymph % (Auto) Jackson % (Auto) Eos % (Auto) Baso % (Auto) Neut # (Auto) Lymph # (Auto) Jackson # (Auto) Eos # (Auto) Baso # (Auto) Immature Gran # (Auto) PT INR APTT PTT Ratio VBG pH 7.44 H VBG pCO2 49 VBG pO2 34 VBG HCO3 32 VBG O2 Saturation 62.6 VBG Base Excess 6.7 Barometric Pressure 726.5 Sodium Potassium Chloride Carbon Dioxide Anion Gap BUN Creatinine Est Cr Clr Drug Dosing Est GFR ( Amer) Est GFR (Non-Af Amer) BUN/Creatinine Ratio Glucose POC Glucose Estimat Average Glucose Hemoglobin A1c Lactate 1.5 Calcium Magnesium Total Bilirubin AST ALT Alkaline Phosphatase Troponin I C-Reactive Protein NT-Pro-B Natriuret Pep Total Protein Albumin Globulin Albumin/Globulin Ratio Procalcitonin < 0.05 09/14/21 09/15/21 09/15/21 22:04 06:47 06:47 WBC 3.50 L RBC 5.24 Hgb 14.7 Hct 44.9 MCV 85.7 MCH 28.1 MCHC 32.7 RDW Std Deviation 43.7 RDW Coeff of Nydia 13.9 Plt Count 207 MPV 10.0 Immature Gran % (Auto) 0.9 Neut % (Auto) 64.2 Lymph % (Auto) 26.0 Jackson % (Auto) 8.6 Eos % (Auto) 0.0 Baso % (Auto) 0.3 Neut # (Auto) 2.25 Lymph # (Auto) 0.91 L Jackson # (Auto) 0.30 Eos # (Auto) 0.00 Baso # (Auto) 0.01 Immature Gran # (Auto) 0.03 H PT INR APTT PTT Ratio VBG pH VBG pCO2 VBG pO2 VBG HCO3 VBG O2 Saturation VBG Base Excess Barometric Pressure Sodium 138 Potassium 3.8 Chloride 101 Carbon Dioxide 32 Anion Gap 5.0 BUN 12 Creatinine 0.69 Est Cr Clr Drug Dosing 227.0 Est GFR ( Amer) 141.6 Est GFR (Non-Af Amer) 122.1 BUN/Creatinine Ratio 17.3 Glucose 155 H POC Glucose 200 H Estimat Average Glucose Hemoglobin A1c Lactate Calcium 8.6 Magnesium Total Bilirubin 0.5 AST 31 ALT 40 Alkaline Phosphatase 46 Troponin I C-Reactive Protein 14.40 H NT-Pro-B Natriuret Pep Total Protein 7.5 Albumin 2.5 L Globulin 5.0 H Albumin/Globulin Ratio 0.5 L Procalcitonin 09/15/21 09/15/21 09/15/21 06:47 08:03 11:48 WBC RBC Hgb Hct MCV MCH MCHC RDW Std Deviation RDW Coeff of Nydia Plt Count MPV Immature Gran % (Auto) Neut % (Auto) Lymph % (Auto) Jackson % (Auto) Eos % (Auto) Baso % (Auto) Neut # (Auto) Lymph # (Auto) Jackson # (Auto) Eos # (Auto) Baso # (Auto) Immature Gran # (Auto) PT INR APTT PTT Ratio VBG pH VBG pCO2 VBG pO2 VBG HCO3 VBG O2 Saturation VBG Base Excess Barometric Pressure Sodium Potassium Chloride Carbon Dioxide Anion Gap BUN Creatinine Est Cr Clr Drug Dosing Est GFR ( Amer) Est GFR (Non-Af Amer) BUN/Creatinine Ratio Glucose POC Glucose 134 H 180 H Estimat Average Glucose 166 Hemoglobin A1c 7.4 H Lactate Calcium Magnesium Total Bilirubin AST ALT Alkaline Phosphatase Troponin I C-Reactive Protein NT-Pro-B Natriuret Pep Total Protein Albumin Globulin Albumin/Globulin Ratio Procalcitonin Medications Administered Current Inpatient Medications Acetaminophen (Acetaminophen 325 Mg Tab) 650 mg PO Q4H PRN PRN Reason: Pain or Fever Stop: 10/14/21 20:50 Albuterol (Albut/Ipratrop 3mg/0.5mg Neb 3 Ml Vial) 3 ml NEB QIDR ZEFERINO Stop: 10/14/21 20:50 Last Admin: 09/15/21 10:21 Dose: 3 ml Documented by: Baricitinib (Baricitinib 2 Mg Tab) 4 mg PO DAILY ZEFERINO Stop: 09/28/21 09:01 Last Admin: 09/15/21 10:16 Dose: 4 mg Documented by: Dextrose (Dextrose 50% 50 Ml Syringe) 25 - 50 ml IV UD PRN; Protocol PRN Reason: Hypoglycemia Protocol Stop: 10/14/21 20:50 Enoxaparin Sodium (Enoxaparin 80 Mg/0.8 Ml Syr) 80 mg SQ Q12H ZEFERINO Stop: 10/14/21 20:59 Last Admin: 09/14/21 22:08 Dose: 80 mg Documented by: Glucagon (Glucagon For Inj 1 Mg Vial) 1 mg SQ UD PRN; Protocol PRN Reason: Hypoglycemia Protocol Stop: 10/14/21 20:50 Glucose (Glucose 10 Tabs/Tube) 4 - 8 tabs PO UD PRN; Protocol PRN Reason: Hypoglycemia Protocol Stop: 10/14/21 20:50 Glucose (Glucose 40% Gel 15 Gm Tube) 15 - 30 gm PO UD PRN; Protocol PRN Reason: Hypoglycemia Protocol Stop: 10/14/21 20:50 Dexamethasone 6 mg/ Syringe 1.5 mls @ 1 mls/min IV QAM ZEFERINO Stop: 10/15/21 08:59 Last Admin: 09/15/21 10:17 Dose: 1 mls/min Documented by: Insulin Aspart (Insulin Aspart 100 Units/Ml 3 Ml Pen) 0 units SC ACHS ZEFERINO Stop: 10/14/21 20:59 Last Admin: 09/15/21 12:17 Dose: Not Given Documented by: Miscellaneous (Carbohydrates For Hypoglycemia ) 15 - 30 gm PO UD PRN PRN Reason: Hypoglycemia Protocol Stop: 10/14/21 20:50 Ondansetron HCl (Ondansetron Inj 2 Mg/Ml 2 Ml Vial) 4 mg IV Q6H PRN PRN Reason: Nausea Stop: 10/14/21 20:50 Pantoprazole Sodium (Pantoprazole 40 Mg Tab) 40 mg PO QAM ZEFERINO Stop: 10/14/21 20:50 Last Admin: 09/15/21 10:17 Dose: 40 mg Documented by: Polyethylene Glycol (Polyethylene (Miralax) 17 Gm Pack) 17 gm PO DAILY PRN PRN Reason: Constipation Stop: 10/14/21 20:50 PG Care Time/CCT Total # of Minutes Spent Total Time Spent with Patient: Total time spent is greater than 50% in coordination of care (as documented) at patient's floor/unit and/or counseling patient: Coding Level of Care Code 54394 Subseq Hosp Care Lvl 3 Diagnoses 2019 novel coronavirus-infected pneumonia (NCIP) U07.1; J12.82 Hypoxia R09.02 Obesity E66.9 Hyperglycemia R73.9 Former smoker Z87.891 Transaminitis R74.01
[2021-09-15] MEDS ORDERED: POTASSIUM CHLORIDE CRTAB 20 MEQ TABCR PO STA (13:08)
[2021-09-15] MEDS ORDERED: FUROSEMIDE INJ 20 MG/2 ML VIAL IV ONE (13:08)
[2021-09-15] MEDS: ENOXAPARIN 80 MG/0.8 ML SYR SQ SCH ×2 (13:58→20:02)
[2021-09-16] MEDS: ALBUT/IPRATROP 3MG/0.5MG NEB 3 ML VIAL NEB SCH (07:49)
[2021-09-16] MEDS: INSULIN ASPART 100 UNITS/ML 3 ML PEN SC SCH ×4 (09:31→20:45)
[2021-09-16] MEDS: ENOXAPARIN 80 MG/0.8 ML SYR SQ SCH ×2 (09:33→20:36)
[2021-09-16] MEDS: FLUTICASONE PROPIONATE NA SPR 16 GM BTL SCH (09:33)
[2021-09-16] MEDS: dexAMETHasone 6 MG in SYRINGE 0 ML IV SCH (09:33)
[2021-09-16] MEDS: BARICITINIB 2 MG TAB PO SCH (09:33)
[2021-09-16] MEDS: FUROSEMIDE INJ 20 MG/2 ML VIAL IV SCH (09:34)
[2021-09-16] MEDS: POTASSIUM CHLORIDE CRTAB 20 MEQ TABCR PO SCH (09:35)
[2021-09-16] MEDS: PANTOprazole 40 MG TAB PO SCH (09:35)
--- NOTE | 2021-09-16 10:01 | Hospitalist Progress Note ---
Date of Service September 16, 2021 Assessment & Plan (1) 2019 novel coronavirus-infected pneumonia (NCIP): Plan: Patient 1 to 2-week of symptoms at the time of admission. With worsening Covid pneumonia and acute respiratory failure with hypoxia. He completed 6 days of azithromycin and cefdinir as an outpatient, procalcitonin is now negative-do not suspect bacterial pneumonia at this point With morbid obesity and DM 2 as risk factors for severe disease for him. He is unvaccinated. CRP is significantly elevated at 15 and AST mildly elevated Was requiring high flow nasal cannula at 30 L and 50% FiO2 immediately upon arrival in the ER for pulse ox in the 50s on room air continue dexamethasone 6mg IV daily, continue baricitinib 4mg daily, last dose 09/28 flutter valve and incentive spirometer encourage him to lay on his side or prone if possible he is eating and drinking well (2) Hypoxia: Plan: As above, secondary to Covid-19 with pneumonia Also has a history of [id number]-tisk smoking-quit 6 years ago Continue duo nebs, steroids, pulmonary toilet stable on humidified Vapotherm give Lasix and follow response (3) Obesity: Plan: BMI 49.8 This is a significant risk factor for severe disease -Discussed weight loss (4) Hyperglycemia: Plan: Was counseled in 2020 to have further testing for diabetes after having a random blood glucose in the 400s Blood sugar here so far is 122, but given that he will be on corticosteroids, will add Accu-Cheks and supplemental NovoLog Hb A1c is 7.4%, so he is a diabetic sugars stable thus far just on Novolog, continue to monitor closey if they go high, would add NPH consult nutrition educator given his HbA1c (5) Former smoker: Plan: As noted above He quit at age 30 (6) Transaminitis: Plan: Mild elevation of AST, likely secondary to Covid-19 Plan: DVT prophylaxis-Lovenox 80 mg/KG SQ twice daily, SCDs Full code Patient designates his girlfriend, Cara Carrasco, as his healthcare power of banking attorney-I advised him to discuss with service excellence about making this official on paper. He reports he does have some immediate family members that are living but he has no contact with them and does not know how to reach them. Admission and Anticipated Discharge Date Admission Date: September 14, 2021 Subjective patient feels better, he is on Vapotherm, no distress, saturations are 90% he is eating and drinking quite well he says he has been ill for about 2 weeks prehospital discussed giving Lasix to dry out lungs, he understands he says he can lay on his side, plans to do that this afternoon reviewed chart and labs Review of Systems Review of Systems: Moderate distress and fatigue no headache, no visual changes no speech or swallowing issues no chest pain, pressure or palpitations Persistent shortness of breath, nonproductive cough conversational dyspnea no abdominal pain, nausea or vomiting, diarrhea or constipation no dysuria, hematuria or frequency no focal joint pain or swelling no back pain, CVA tenderness or radicular pain no bruising, bleeding or rashes no focal signs of weakness or numbness or altered sensation no complaints of anxiety or depression.. Physical Exam Physical Exam: The patient appeared to have some mild respiratory distress is stable he is morbidly obese with a BMI of 48 Vital signs as documented. Head exam is normocephalic atraumatic Neck is without JVD, thyromegaly, or carotid bruits. Lungs are rales in all lung zones Cardiac exam, Rhythm is regular.. No murmurs, rubs or gallops. Abdominal exam reveals normal bowel sounds, soft non tender, no masses Extremities are nonedematous and both pedal pulses are present Neurologic exam is alert and oriented, no focal loss of strength or sensation Skin is without bruises or rashes Psychologically is without concerns for anxiety or depression.. Results & Data Results & Data ([facility]) Vital Signs (Past 12 Hours) Vital Signs Temp Pulse Pulse Resp BP Pulse Ox 09/16/21 09:37 94 09/16/21 09:32 97 09/16/21 09:30 98 09/16/21 07:49 90 20 93 09/16/21 07:41 97.9 F 90 21 125/86 94 09/16/21 04:15 105 H 09/16/21 03:31 62 24 94 09/16/21 03:18 97.7 F 81 12 123/76 95 09/15/21 23:19 97.7 F 94 H 21 133/70 92 09/15/21 23:09 97 H 24 90 PG Care Time/CCT Total # of Minutes Spent Total Time Spent with Patient: Total time spent is greater than 50% in coordination of care (as documented) at patient's floor/unit and/or counseling patient: Coding Level of Care Code 80301 Subseq Hosp Care Lvl 2 Diagnoses 2019 novel coronavirus-infected pneumonia (NCIP) U07.1; J12.82 Hypoxia R09.02 Obesity E66.9 Hyperglycemia R73.9 Former smoker Z87.891 Transaminitis R74.01
[2021-09-16] MEDS ORDERED: ALBUT/IPRATROP 3MG/0.5MG NEB 3 ML VIAL NEB PRN (10:04)
[2021-09-17] MEDS: POTASSIUM CHLORIDE CRTAB 20 MEQ TABCR PO SCH (09:22)
[2021-09-17] MEDS: PANTOprazole 40 MG TAB PO SCH (09:22)
[2021-09-17] MEDS: dexAMETHasone 6 MG in SYRINGE 0 ML IV SCH (09:23)
[2021-09-17] MEDS: BARICITINIB 2 MG TAB PO SCH (09:23)
[2021-09-17] MEDS: FUROSEMIDE INJ 20 MG/2 ML VIAL IV SCH (09:23)
[2021-09-17] MEDS: INSULIN ASPART 100 UNITS/ML 3 ML PEN SC SCH ×4 (09:25→21:18)
[2021-09-17] MEDS: FLUTICASONE PROPIONATE NA SPR 16 GM BTL SCH ×2 (09:27→09:31)
[2021-09-17] MEDS: ENOXAPARIN 80 MG/0.8 ML SYR SQ SCH ×2 (09:27→20:43)
[2021-09-18] MEDS: FLUTICASONE PROPIONATE NA SPR 16 GM BTL SCH (08:50)
[2021-09-18] MEDS: INSULIN ASPART 100 UNITS/ML 3 ML PEN SC SCH ×4 (08:54→21:32)
[2021-09-18] MEDS: dexAMETHasone 6 MG in SYRINGE 0 ML IV SCH (08:57)
[2021-09-18] MEDS: ENOXAPARIN 80 MG/0.8 ML SYR SQ SCH ×2 (08:57→19:40)
[2021-09-18] MEDS: BARICITINIB 2 MG TAB PO SCH (08:57)
[2021-09-18] MEDS: POTASSIUM CHLORIDE CRTAB 20 MEQ TABCR PO SCH (08:58)
[2021-09-18] MEDS: PANTOprazole 40 MG TAB PO SCH (08:58)
[2021-09-18] MEDS: FUROSEMIDE INJ 20 MG/2 ML VIAL IV SCH (08:59)
--- NOTE | 2021-09-18 18:23 | Hospitalist Progress Note ---
Date of Service September 17, 2021 Assessment & Plan (1) 2019 novel coronavirus-infected pneumonia (NCIP): Plan: Patient 1 to 2-week of symptoms at the time of admission. With worsening Covid pneumonia and acute respiratory failure with hypoxia. He completed 6 days of azithromycin and cefdinir as an outpatient, procalcitonin is now negative-do not suspect bacterial pneumonia at this point With morbid obesity and DM 2 as risk factors for severe disease for him. He is unvaccinated. CRP is significantly elevated at 15 and AST mildly elevated Was requiring high flow nasal cannula at 30 L and 50% FiO2 immediately upon arrival in the ER for pulse ox in the 50s on room air Oxygen requirement down to 8 L now patient improving daily continue dexamethasone 6mg IV daily, continue baricitinib 4mg daily, last dose 09/28 flutter valve and incentive spirometer encourage him to lay on his side or prone if possible he is eating and drinking well (2) Hypoxia: Plan: As above, secondary to Covid-19 with pneumonia Also has a history of 29-qylt-kyus smoking-quit 6 years ago Continue duo nebs, steroids, pulmonary toilet stable on nasal cannula oxygen give Lasix and follow response (3) Obesity: Plan: BMI 49.8 This is a significant risk factor for severe disease -Discussed weight loss (4) Hyperglycemia: Plan: Was counseled in 2020 to have further testing for diabetes after having a random blood glucose in the 400s Blood sugar here so far is 122, but given that he will be on corticosteroids, will add Accu-Cheks and supplemental NovoLog Hb A1c is 7.4%, so he is a diabetic sugars stable thus far just on insulin therapy consult certified lactation educator given his HbA1c of 7.4 patient was seen by diabetic nurse educator recommending Metformin 500 twice daily at this time (5) Former smoker: Plan: As noted above He quit at age 30 (6) Transaminitis: Plan: Mild elevation of AST, likely secondary to Covid-19 Plan: DVT prophylaxis-Lovenox 80 mg/KG SQ twice daily, SCDs Full code Patient designates his girlfriend, Cara Carrasco, as his healthcare power of bankruptcy attorney-I advised him to discuss with service excellence about making this official on paper. He reports he does have some immediate family members that are living but he has no contact with them and does not know how to reach them. Admission and Anticipated Discharge Date Admission Date: September 14, 2021 Subjective pt cotinues to improve, encouraged to continue respiratory physiotherapy Review of Systems Review of Systems: Mild distress and fatigue no headache, no visual changes no speech or swallowing issues no chest pain, pressure or palpitations Persistent shortness of breath cough occasionally productive of blood-tinged sputum no abdominal pain, nausea or vomiting, diarrhea or constipation no dysuria, hematuria or frequency no focal joint pain or swelling no back pain, CVA tenderness or radicular pain no bruising, bleeding or rashes no focal signs of weakness or numbness or altered sensation no complaints of anxiety or depression.. Physical Exam Physical Exam: The patient appeared well nourished and normally developed. She is morbidly obese with a BMI of 48.1 Vital signs as documented. Head exam is normocephalic atraumatic Neck is without JVD, thyromegaly, or carotid bruits. Lungs are with bibasilar rales in all lung [place] Cardiac exam, Rhythm is regular.. No murmurs, rubs or gallops. Abdominal exam reveals normal bowel sounds, soft non tender, no masses Extremities are nonedematous and both pedal pulses are present Neurologic exam is alert and oriented, no focal loss of strength or sensation Skin is without bruises or rashes Psychologically is without concerns for anxiety or depression.. Results & Data Results & Data ([facility]) Vital Signs (Past 12 Hours) Vital Signs Temp Pulse Pulse Resp BP Pulse Ox Pulse Ox 09/17/21 17:37 95 09/17/21 16:51 97.9 F 73 18 130/98 98 09/17/21 16:49 77 09/17/21 11:53 97.5 F L 75 18 118/82 96 09/17/21 09:00 80 09/17/21 07:53 97.5 F L 87 20 120/85 96 PG Care Time/CCT Total # of Minutes Spent Total Time Spent with Patient: Total time spent is greater than 50% in coordination of care (as documented) at patient's floor/unit and/or counseling patient: Coding Level of Care Code 55400 Subseq Hosp Care Lvl 2 Diagnoses 2019 novel coronavirus-infected pneumonia (NCIP) U07.1; J12.82 Hypoxia R09.02 Obesity E66.9 Hyperglycemia R73.9 Former smoker Z87.891 Transaminitis R74.01
--- NOTE | 2021-09-18 18:27 | Hospitalist Progress Note ---
Date of Service September 18, 2021 Assessment & Plan (1) 2019 novel coronavirus-infected pneumonia (NCIP): Plan: Patient 1 to 2-week of symptoms at the time of admission. With worsening Covid pneumonia and acute respiratory failure with hypoxia. He completed 6 days of azithromycin and cefdinir as an outpatient, procalcitonin is now negative-do not suspect bacterial pneumonia at this point With morbid obesity and DM 2 as risk factors for severe disease for him. He is unvaccinated. CRP is significantly elevated at 15 and AST mildly elevated Was requiring high flow nasal cannula at 30 L and 50% FiO2 immediately upon arrival in the ER for pulse ox in the 50s on room air Oxygen requirement down to 5 L now patient improving daily continue dexamethasone 6mg IV daily, continue baricitinib 4mg daily, last dose 09/28 flutter valve and incentive spirometer encourage him to lay on his side or prone if possible he is eating and drinking well (2) Hypoxia: Plan: As above, secondary to Covid-19 with pneumonia Also has a history of [id number]-kkbz smoking-quit 6 years ago Continue duo nebs, steroids, pulmonary toilet stable on nasal cannula oxygen give Lasix and follow response (3) Obesity: Plan: BMI 49.8 This is a significant risk factor for severe disease -Discussed weight loss (4) Hyperglycemia: Plan: Was counseled in 2020 to have further testing for diabetes after having a random blood glucose in the 400s Blood sugar here so far is 122, but given that he will be on corticosteroids, will add Accu-Cheks and supplemental NovoLog Hb A1c is 7.4%, so he is a diabetic sugars stable thus far just on insulin therapy consult rn diabetes educator given his HbA1c of 7.4 patient was seen by diabetic nurse educator recommending Metformin 500 twice daily at this time (5) Former smoker: Plan: As noted above He quit at age 30 (6) Transaminitis: Plan: Mild elevation of AST, likely secondary to Covid-19 Plan: DVT prophylaxis-Lovenox 80 mg/KG SQ twice daily, SCDs Full code Patient designates his girlfriend, Cara Carrasco, as his healthcare power of physical therapy teacher-I advised him to discuss with service excellence about making this official on paper. He reports he does have some immediate family members that are living but he has no contact with them and does not know how to reach them. Admission and Anticipated Discharge Date Admission Date: September 14, 2021 Subjective pt cotinues to improve less oxygen on 09/18/2021 encouraged to continue respiratory physiotherapy Review of Systems Review of Systems: Mild distress and fatigue no headache, no visual changes no speech or swallowing issues no chest pain, pressure or palpitations Persistent shortness of breath cough occasionally productive of blood-tinged sputum no abdominal pain, nausea or vomiting, diarrhea or constipation no dysuria, hematuria or frequency no focal joint pain or swelling no back pain, CVA tenderness or radicular pain no bruising, bleeding or rashes no focal signs of weakness or numbness or altered sensation no complaints of anxiety or depression.. Physical Exam Physical Exam: The patient appeared well nourished and normally developed. She is morbidly obese with a BMI of 48.1 Vital signs as documented. Head exam is normocephalic atraumatic Neck is without JVD, thyromegaly, or carotid bruits. Lungs are with bibasilar rales in all lung [place] Cardiac exam, Rhythm is regular.. No murmurs, rubs or gallops. Abdominal exam reveals normal bowel sounds, soft non tender, no masses Extremities are nonedematous and both pedal pulses are present Neurologic exam is alert and oriented, no focal loss of strength or sensation Skin is without bruises or rashes Psychologically is without concerns for anxiety or depression.. Results & Data Results & Data ([facility]) Vital Signs (Past 12 Hours) Vital Signs Temp Pulse Pulse Resp BP Pulse Ox 09/18/21 15:18 97.9 F 94 H 20 123/89 98 09/18/21 12:08 98.6 F 92 H 20 113/74 93 09/18/21 09:00 70 09/18/21 07:35 97.9 F 87 22 104/71 96 PG Care Time/CCT Total # of Minutes Spent Total Time Spent with Patient: Total time spent is greater than 50% in coordination of care (as documented) at patient's floor/unit and/or counseling patient: Coding Level of Care Code 75869 Subseq Hosp Care Lvl 2 Diagnoses 2019 novel coronavirus-infected pneumonia (NCIP) U07.1; J12.82 Hypoxia R09.02 Obesity E66.9 Hyperglycemia R73.9 Former smoker Z87.891 Transaminitis R74.01
[2021-09-19] MEDS: INSULIN ASPART 100 UNITS/ML 3 ML PEN SC SCH ×4 (08:48→20:28)
[2021-09-19] MEDS: POTASSIUM CHLORIDE CRTAB 20 MEQ TABCR PO SCH (08:50)
[2021-09-19] MEDS: PANTOprazole 40 MG TAB PO SCH (08:50)
[2021-09-19] MEDS: metFORMIN HCL 500 MG TAB PO SCH ×2 (08:50→17:31)
[2021-09-19] MEDS: FUROSEMIDE INJ 20 MG/2 ML VIAL IV SCH (08:50)
[2021-09-19] MEDS: ENOXAPARIN 80 MG/0.8 ML SYR SQ SCH ×2 (08:50→20:30)
[2021-09-19] MEDS: dexAMETHasone 6 MG in SYRINGE 0 ML IV SCH (08:51)
[2021-09-19] MEDS: BARICITINIB 2 MG TAB PO SCH (08:51)
[2021-09-19] MEDS: FLUTICASONE PROPIONATE NA SPR 16 GM BTL SCH (08:52)
--- NOTE | 2021-09-19 17:34 | Hospitalist Progress Note ---
Date of Service September 19, 2021 Assessment & Plan (1) 2019 novel coronavirus-infected pneumonia (NCIP): Plan: Patient 1 to 2-week of symptoms at the time of admission. With worsening Covid pneumonia and acute respiratory failure with hypoxia. He completed 6 days of azithromycin and cefdinir as an outpatient, procalcitonin is now negative-do not suspect bacterial pneumonia at this point With morbid obesity and DM 2 as risk factors for severe disease for him. He is unvaccinated. CRP is significantly elevated at 15 and AST mildly elevated Was requiring high flow nasal cannula at 30 L and 50% FiO2 immediately upon arrival in the ER for pulse ox in the 50s on room air Oxygen requirement down to 3 L now patient improving daily continue dexamethasone 6mg IV daily, continue baricitinib 4mg daily, last dose 09/28 flutter valve and incentive spirometer encourage him to lay on his side or prone if possible he is eating and drinking well (2) Hypoxia: Plan: As above, secondary to Covid-19 with pneumonia Also has a history of [id number] smoking-quit 6 years ago Continue duo nebs, steroids, pulmonary toilet stable on nasal cannula oxygen give Lasix and follow response (3) Obesity: Plan: BMI 49.8 This is a significant risk factor for severe disease -Discussed weight loss (4) Hyperglycemia: Plan: Was counseled in 2020 to have further testing for diabetes after having a random blood glucose in the 400s Blood sugar here so far is 122, but given that he will be on corticosteroids, will add Accu-Cheks and supplemental NovoLog Hb A1c is 7.4%, so he is a diabetic sugars stable thus far started metformin consult inclusion paraeducator given his HbA1c of 7.4 patient was seen by diabetic nurse educator recommending Metformin 500 twice daily at this time (5) Former smoker: Plan: As noted above He quit at age 30 (6) Transaminitis: Plan: Mild elevation of AST, likely secondary to Covid-19 Plan: DVT prophylaxis-Lovenox 80 mg/KG SQ twice daily, SCDs Full code Patient designates his girlfriend, Cara Carrasco, as his healthcare power of county attorney-I advised him to discuss with service excellence about making this official on paper. He reports he does have some immediate family members that are living but he has no contact with them and does not know how to reach them. Admission and Anticipated Discharge Date Admission Date: September 14, 2021 Subjective pt cotinues to improve less oxygen on 09/18/2021 encouraged to continue respiratory physiotherapy, did start some metformin will see how glucose resonds Review of Systems Review of Systems: Mild distress and fatigue no headache, no visual changes no speech or swallowing issues no chest pain, pressure or palpitations Persistent shortness of breath cough occasionally productive of blood-tinged sputum no abdominal pain, nausea or vomiting, diarrhea or constipation no dysuria, hematuria or frequency no focal joint pain or swelling no back pain, CVA tenderness or radicular pain no bruising, bleeding or rashes no focal signs of weakness or numbness or altered sensation no complaints of anxiety or depression.. Physical Exam Physical Exam: The patient appeared well nourished and normally developed. he is morbidly obese with a BMI of 47.3 Vital signs as documented. Head exam is normocephalic atraumatic Neck is without JVD, thyromegaly, or carotid bruits. Lungs are with bibasilar rales in all lung [place] Cardiac exam, Rhythm is regular.. No murmurs, rubs or gallops. Abdominal exam reveals normal bowel sounds, soft non tender, no masses Extremities are nonedematous and both pedal pulses are present Neurologic exam is alert and oriented, no focal loss of strength or sensation Skin is without bruises or rashes Psychologically is without concerns for anxiety or depression.. Results & Data Results & Data ([facility]) Vital Signs (Past 12 Hours) Vital Signs Temp Pulse Pulse Resp BP Pulse Ox Pulse Ox 09/19/21 17:00 94 09/19/21 15:38 97.7 F 93 H 19 125/89 93 09/19/21 15:00 96 H 09/19/21 11:44 97.9 F 95 H 19 109/71 92 09/19/21 09:00 63 09/19/21 07:28 97.5 F L 71 22 118/82 95 PG Care Time/CCT Total # of Minutes Spent Total Time Spent with Patient: Total time spent is greater than 50% in coordination of care (as documented) at patient's floor/unit and/or counseling patient: Coding Level of Care Code 14184 Subseq Hosp Care Lvl 2 Diagnoses 2019 novel coronavirus-infected pneumonia (NCIP) U07.1; J12.82 Hypoxia R09.02 Obesity E66.9 Hyperglycemia R73.9 Former smoker Z87.891 Transaminitis R74.01
[2021-09-20] MEDS: INSULIN ASPART 100 UNITS/ML 3 ML PEN SC SCH ×3 (08:45→17:51)
[2021-09-20] MEDS: dexAMETHasone 6 MG in SYRINGE 0 ML IV SCH (08:53)
[2021-09-20] MEDS: BARICITINIB 2 MG TAB PO SCH (08:53)
[2021-09-20] MEDS: PANTOprazole 40 MG TAB PO SCH (08:54)
[2021-09-20] MEDS: metFORMIN HCL 500 MG TAB PO SCH ×2 (08:54→17:36)
[2021-09-20] MEDS: ENOXAPARIN 80 MG/0.8 ML SYR SQ SCH (08:54)
[2021-09-20] MEDS: FUROSEMIDE INJ 20 MG/2 ML VIAL IV SCH (08:54)
[2021-09-20] MEDS: POTASSIUM CHLORIDE CRTAB 20 MEQ TABCR PO SCH (08:54)
[2021-09-20] MEDS: FLUTICASONE PROPIONATE NA SPR 16 GM BTL SCH (08:57)
--- NOTE | 2021-09-20 12:02 | Discharge Summary ---
Date of Service September 20, 2021 Admission HPI Per Admitting Provider This patient is a 36-year-old male with a history of morbid obesity, diabetes mellitus type 2, and a [id number]-vrob smoking history, who does not follow routinely with the PCP, who presents to the ER with worsening shortness of breath. He was seen in the ER on 09/08 and diagnosed with suspected Covid-19 with pneumonia (it took 24 hours for the Covid test to be resulted) but was discharged home on cefdinir, azithromycin, and an albuterol inhaler. His pulse ox at that time was 92-93% on room air. He was discharged home with a pulse ox as well. His Covid-19 test came back positive the next day and he was contacted with the results. Of note, he is unvaccinated for Covid-19. His symptoms originally started around 09/03-09/04 with decreased appetite, cough with some brownish phlegm, sweats/chills and body aches. He returned to the ER today with worsening shortness of breath that was much worse with any ambulation. He tried taking the albuterol inhaler without relief. In the ER, his pulse ox was noted to be in the 50s on room air with a good waveform and he was placed on high flow nasal cannula with improvement of his pulse ox to the low 90s. He reports even when his POx was in the 50s, he denies feeling SOB, but reports feeling very lightheaded. His chest x-ray showed significant progression with bilateral multifocal infiltrates left greater than right. His CBC, VBG, and CMP were all within normal limits except for a mild elevation in AST to 47. A lactate was normal, troponin was negative, procalcitonin was negative, and proBNP was normal at 97. His ECG showed sinus tachycardia with rate of 109, otherwise normal. He will be admitted for Covid-19 with pneumonia and acute respiratory failure with hypoxia. Principal Diagnosis COVID 19 pneumonia with acute hypoxic respiratory failure Discharge Exam General: well developed, well nourished, obese male, no acute distress, comfortable Neck: supple, trachea midline, normal thyroid Lungs: CTA bilaterally, normal effort, no accessory muscle use Heart: regular S1 and S2, no murmur, peripheral pulses normal, capillary refill normal, no edema Abdomen: soft, NT, ND, + BS, no hepatomegaly, normal to percussion Extremities: normal in appearance, no cyanosis, no petechiae, strength is 5/5 bilaterally Neuro: awake, cooperative, moves all extremities, no focal motor deficits, CN II-XII intact, sensation in extremities intact, normal speech Skin: warm, dry, no rash, normal turgor Psych: Awake, alert oriented x 3, euthymic affect Discharge Data Allergies Allergy/AdvReac Type Severity Reaction Status Date / Time No Known Allergies Allergy Unverified 09/08/21 14:47 Consultations 09/14/21 18:31 ED Decision to Admit Stat Diabetes Follow up Diabetes Follow-up Needed for Newly Diagnosed Diabetes Hospital Course (1) 2019 novel coronavirus-infected pneumonia (NCIP): Patient 1 to 2-week of symptoms at the time of admission. With worsening Covid pneumonia and acute respiratory failure with hypoxia. With morbid obesity and DM 2 as risk factors for severe disease for him. CRP was up at 15 on admission Was requiring high flow nasal cannula at 30 L and 50% FiO2 immediately upon arrival in the ER for pulse ox in the 50s on room air weaned down over the past week, he is all the way down to room air today 2 step shows he needs 2L on exertion, arranged for home oxygen continue dexamethasone 6mg IV daily x 7 days, change to PO on discharge for 3 more days treated with baricitinib 4mg daily while here, stop on discharge flutter valve and incentive spirometer (2) Hypoxia: As above, secondary to Covid-19 with pneumonia Also has a history of [id number] smoking-quit 6 years ago Continue duo nebs, steroids, pulmonary toilet stable on room air was given Lasix while inpatient, no need to continue on discharge (3) Obesity: BMI 49.8 This is a significant risk factor for severe disease -Discussed weight loss, healthy goal of 10-20% of total body weight (4) Hyperglycemia: Was counseled in 2020 to have further testing for diabetes after having a random blood glucose in the 400s Hb A1c is 7.4%, so he is a diabetic sugars stable thus far started metformin consult conservation educator given his HbA1c of 7.4 patient was seen by diabetic nurse educator recommending Metformin 500 twice daily at this time (5) Former smoker: As noted above He quit at age 30 (6) Transaminitis: Mild elevation of AST, likely secondary to Covid-19 DVT prophylaxis-Lovenox 80 mg/KG SQ twice daily, SCDs he is young and active, no need for Xarelto on discharge arrange for [facility] PCP on Wednesday Total Time Total Time Spent Total Time Spent (In Minutes): 34 minutes Total Time Includes: Examination of the Patient, Discharge Planning and Medication Reconciliation Discharge Plan Discharge Items Patient Disposition: Home - Self-Care Reason For Visit: COVID-19 PNA, HYPOXIA Discharge Diagnosis: COVID 19 pneumonia Acute hypoxic respiratory failure Diabetes, type II Condition on Discharge: Good Goals: complete course of dexamethasone start on Metformin for diabetes use oxygen on exertion for the next week Activity: Resume your previous activity Driving/Machine Use: No limitations Weightbearing: Full weightbearing Non-emergency contact: Primary Care Provider Call non-emergency contact if: you have any medication questions and your symptoms worsen Follow-up/Referrals: PCP,NO [Primary Care Provider] - Diet: Carb Consistent or DM2 Addtl Attending Provider Instructions: Medications: DEXAMETHASONE: 6mg daily for three more days, next dose due tomorrow morning METFORMIN: 500mg twice a day, this is for diabetes, can cause some loose stool but should subside as your body adjusts COVID 19 pneumonia, acute hypoxic respiratory failure responded well to dexamethasone and baricitinib, titrated down to room air today recommend you finish 3 days of dexamethasone stay well nourished, increase activity, no longer need to be quarantined you can use 2L of oxygen when exerting yourself, suspect you will only need it for a week recommend you take off of work the next week, will give you an excuse Diabetes: you have had high sugars in the past, borderline diabetes now your hemoglobin A1c is > 7%, you have type II diabetes recommend taking Metformin also, recommend 10-20% weight loss which might eliminate your need for medications I will send a message to my sample case porter to try to arrange a follow up with a PCP for you with [facility], they should contact you Wednesday Pending Studies at Discharge: No Stand-Alone Forms: My [facility] [place], Smoking Cessation Medications and DC Order Prescriptions: New metformin 500 mg Tablet 500 mg PO BIDM 30 Days Qty: 60 RF: 3 dexamethasone 4 mg tablet 6 mg PO DAILY 3 Days Qty: 5 RF: 0 Discontinued cefdinir 300 mg capsule 300 mg PO BID 7 Days Qty: 14 RF: 0 azithromycin [Zithromax] 250 mg tablet See Rx Instructions .ROUTE .COMPLEX Qty: 6 RF: 0 albuterol sulfate [Ventolin HFA] 90 mcg/actuation HFA aerosol inhaler 2 inh inhalation Q6H PRN (Reason: shortness of breath or wheezing) Qty: 6.7 RF: 0 Discharge Orders: Discharge Order (Routine); Ordered 09/20/21 Ordered By: Faisal Chance/Other Patient Handouts: High Blood Sugar (Hyperglycemia), Hypoglycemia (Low Blood Sugar), Exercise: Why Fitness Matters, Diabetes: Meal Planning, Type 2 Diabetes Admission Data Admit Date/Time: 09/14/21 18:43 Attending Provider: Faisal Roach Admit Provider: Gauri Horton Primary Care Provider: PCP,NO Other Providers: Gauri Horton Other Interventions: Discharge Summary Assessment (RN) Last Done: 09/20/21 13:10 Coding Level of Care Code D/C DAY MANAGEMENT >30 MINS Diagnoses 2019 novel coronavirus-infected pneumonia (NCIP) U07.1; J12.82 Hypoxia R09.02 Obesity E66.9 Hyperglycemia R73.9 Former smoker Z87.891 Transaminitis R74.01
== END 2021-09-20 19:25 | disposition home or self-care (01) | DRG 177 ==
LOC: ED 15:04 → SUATTDRO 18:43 → EDINP 18:43 → 2S 09-15 05:06

== ENCOUNTER 2022-10-28 18:20 | Inpatient (IN) ==
--- NOTE | 2022-10-28 20:07 | Ultrasound Report ---
RIGHT LOWER EXTREMITY VENOUS DOPPLER CLINICAL HISTORY: Right lower extremity pain. Shortness of breath. COMPARISON STUDY: No previous studies for comparison. TECHNIQUE: Sonography of the deep venous system of the right lower extremity was performed. Compress ion and augmentation were evaluated. FINDINGS: Extensive deep venous thrombus within the right lower extremity is noted. This is likely a cute. Vessels appear expanded. There is thrombus within the right superficial femoral and popliteal v eins. Deep venous thrombus within the right calf vessels is noted. There is also superficial thrombus within several right popliteal fossa veins. IMPRESSION: Extensive deep venous thrombus within the right lower extremity. ACT 112: Negative or not required by law. Electronically signed by: Kiran De Leon M.D. 10/28/2022 8:06 PM
[2022-10-28 20:35] LABS: Basophils # (auto) 0.06 K/uL (0-0.2); Basophils % (auto) 0.6 %; Eosinophils # (auto) 0.22 K/uL (0-0.50); Eosinophils % (auto) 2.1 %; Hemoglobin 15.2 g/dl (14.0-18.0); Immature Granulocytes # (auto) 0.08 K/uL (0.00-0.02); Immature Granulocytes % (auto) 0.7 %; Lymphocytes # (auto) 2.91 K/uL (1.2-3.4); Lymphocytes % (auto) 27.1 %; Mean Corpuscular Hemoglobin 27.6 pg (25.0-34.0); Mean Corpuscular Volume 83.5 fL (80.0-100.0); Mean Platelet Volume 9.5 fL (9.4-12.4); Monocytes # (auto) 0.69 K/uL (0.24-0.82); Monocytes % (auto) 6.4 %; Neutrophils # (auto) 6.76 K/uL (1.4-6.5); Neutrophils % (auto) 63.1 %; Platelet Count 247 K/uL (130-400); RDW Standard Deviation 42.7 fL (36.4-46.3); Red Blood Count 5.51 M/uL (4.63-6.08); White Blood Count 10.72 K/ul (4.8-10.8)
[2022-10-28 20:47] LABS: INR 1.1 (0.9-1.1); Partial Thromboplastin Time 26.7 Seconds (21.0-31.0); Prothrombin Time 11.4 Seconds (9.0-12.0)
[2022-10-28] MEDS ORDERED: OPTIRAY 320 500ml IV ONE (20:49)
[2022-10-28 20:58] LABS: Alanine Aminotransferase 68 U/L (7-52); Alkaline Phosphatase 78 U/L (34-104); Anion Gap 12 (3-11); Aspartate Aminotransferase 33 U/L (13-39); BUN Creatinine Ratio 21.4 (10-20); Bilirubin,Total 0.7 mg/dl (0.2-1.0); Blood Urea Nitrogen 12 mg/dl (6-23); Calcium 9.5 mg/dl (8.5-10.1); Carbon Dioxide 26 mmol/L (21-32); Chloride 101 mmol/L (98-107); Creatinine Clr Calc Pharmacy 294.3 ml/min; Est GFR (African American) > 150.0 ml/min; Est GFR (Non-African American) 132.1 ml/min; Globulin 4.1 gm/dl (2.5-4.0); Glucose 154 mg/dl (70-99(Fasting)); Magnesium 1.5 mg/dl (1.7-2.4); Potassium 3.7 mmol/L (3.5-5.1); Sodium 139 mmol/L (136-145); Total Protein 8.1 gm/dl (6.0-8.3)
[2022-10-28] MEDS ORDERED: Heparin IV Adult Wt-Based Standard WITH Bolus Protocol IV STA (20:59)
[2022-10-28] MEDS ORDERED: HEPARIN SOD (PORCINE) 1000 UNIT/ML IV ONE (21:14)
--- NOTE | 2022-10-28 21:21 | CT Scan Report ---
CT ANGIOGRAPHY OF THE CHEST, PULMONARY EMBOLUS PROTOCOL CLINICAL HISTORY: sob + clots in lower extremity COMPARISON STUDY: Chest CT September 08, 2021 and chest radiograph September 06, 2021. TECHNIQUE: Following IV administration of 108 mL of Optiray, helical axial images of the chest were o btained utilizing the pulmonary embolus protocol. Maximal intensity projections and sagittal and cor onal reformats were viewed on an independent 3D workstation. IV contrast was administered without co mplication. Automated exposure control was utilized for the study. A dose lowering technique was ut ilized adhering to the principles of ALARA. CT DOSE: 855.75 mGy.cm FINDINGS: There are extensive acute bilateral pulmonary emboli, including a saddle embolus. Emboli a re noted throughout the lobar and segmental branches of both lungs. There is mild dilatation of the c entral pulmonary arteries. In addition, there is dilatation of the right heart chambers with leftward bowing of the interventricular septum. No pericardial effusion. The heart is mildly enlarged. There is no pneumothorax or pleural effusion. There is no pulmonary infarct. Bony thorax is unremarkable. H epatic steatosis is incidentally noted. IMPRESSION: Extensive acute bilateral pulmonary emboli, including a saddle embolus. CT findings cons istent with right heart strain. Findings discussed with Dr. Cordon at time of dictation. ACT 112: Negative or not required by law. Electronically signed by: Kiran De Leon M.D. 10/28/2022 9:19 PM
--- NOTE | 2022-10-28 21:25 | Emergency Department Note ---
Impression & Plan Pulmonary air embolism, DVT (deep venous thrombosis), Breath shortness ED Provider Note NAME: JB MARRERO AGE: 37 SEX: M : 1985 ARRIVES VIA: Walk-In INFORMANT: Patient ED PROVIDER(S): Mario Cordon DO CHIEF COMPLAINT: shortness of breath HPI: Patient is a 37-year-old male who presents ER for shortness of breath. He notes his symptoms have been going on for the past week. He also admits to swelling of his calf. He discussed with his PCP and referred in. He notes he cannot work because his leg becomes so painful. His oxygen saturation have been dropping. He is a diabetic. He denies any headache or change in vision. No belly pain, nausea, vomiting, or diarrhea. No dysuria, urgency, or frequency. No other exacerbating or remitting factors. PAST MEDICAL HISTORY:See Below PAST SURGICAL HISTORY:See Below FAMILY HISTORY:See Below SOCIAL HISTORY:See Below HOME MEDICATIONS:See Below ALLERGIES:See Below VITALS:See Below PHYSICAL EXAMINATION: GENERAL: Sitting up in bed, alert, ill-appearing, disheveled EYE EXAM: normal conjunctiva. PERRL and EOM's grossly intact. OROPHARYNX: mucous membranes are dry NECK: supple, no nuchal rigidity, no adenopathy, non-tender LUNGS: Clear to auscultation. Normal chest wall mechanics HEART: no murmurs, S1 normal and S2 normal ABDOMEN: abdomen soft, non-tender, normo-active bowel sounds, no masses, no rebound or guarding. UPPER EXTREMITIES: upper extremities are grossly normal. LOWER EXTREMITIES: Right calf larger than left with pitting edema NEURO EXAM: Normal sensorium, cranial nerves II-XII grossly intact, normal speech, no gross weakness of arms, no gross weakness of legs. MEDICAL DECISION MAKING: Patient is a 37-year-old male who presents ER for leg swelling and shortness of breath. He was found to be borderline hypoxic on room air at 92%. Ultrasound was obtained in the triage waiting room and showed extensive DVT. Following this he was pulled back to the room by myself. IV was established blood was obtained. Labs show no significant leukocytosis or anemia. INR unremarkable. BMP with creatinine 0.56. LFTs, bilirubin, was unremarkable. Discussed with Dr. Reeves from the [facility] following having a CT scanning performed which showed a saddle PE. He was agreeable to keeping the patient as he was hemodynamically stable. Discussed with Dominique Flanagan for admission. Following this Isidro De Leon did contact me in regards to saddle PE. Patient was placed on heparin drip and bolus. He was updated bedside. He denies any previous head bleeds, coughing up blood, vomiting blood, urinating blood he has had previous blood in the stool. No recent surgeries or trauma. External records reviewed. Updated bedside. Admitted for further work-up. Triage Nursing notes reviewed. Limited review of prior medical records performed Vital Signs: reviewed and remarkable for tachy Differential diagnosis: Differential diagnoses includes but is not limited to pneumonia, bronchitis, COPD/Asthma exacerbation, pneumothorax, pulmonary embolism, congestive heart failure, acute coronary syndrome ER treatment provided: See below Diagnostics interpreted by me include EKG and cardiac monitoring as listed below: -Cardiac Monitoring: An order was placed for continuous cardiac monitoring. The monitor shows a rate of 101 with sinus rhythm. -ECG: Sinus rhythm with a one-to-one Left axis No PVCs QTC 461 -Laboratory studies:Interpreted by me as stated above in MDM and shown below. Imaging studies: Xrays: As interpreted by me:none CTs show: CT angio of the chest per my read shows a saddle PE. Consultation(s): Discussed with Dr. Reeves from the [facility] and is agreeable to keeping the patient here with a saddle PE Discussed with Dominique Flanagan for admission further work-up she was agreeable Discussed with Isidro De Leon who confirmed the saddle PE Procedures:none Critical Care: I have personally spent 33 minutes of critical care time in the direct management of this patient. This includes bedside care, interpretation of diagnostic studies, and testing, discussion with consultants, patient, and family members, and other required patient management activities. This 33 minutes is in excess of all separately billable procedures. Past Med/Surg History Medical History Acute respiratory distress Diabetes Hidradenitis suppurativa of right axilla Obesity Open right arm fracture Pilonidal cyst Pneumonia due to COVID-19 virus Surgery, elective Surgical History H/O hernia repair History of incision and drainage (09/03/22) Family History Other Family history non-contributory Family history unknown Foster child Social History Smoking Status: Former smoker Tobacco Type: Cigarettes Age Started Using Tobacco: 11; Age Quit Using Tobacco: 30; packs per day: 2; Hx Alcohol Use: No Hx Substance Use: No Preferred Language: Bhutanese Communication Ability: Effective Visual Impairment: No Limitations Hearing Ability: Normal Environmental Epidemiologist Required: No Beliefs That Will Affect Care: None marital status: Single Current Living Situation: Significant Other current occupational status: employed 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 How many Children do You have: 1 Feels Safe at Home: Yes Childhood Exposure to Second-Hand Smoke: No Diet Comment: low sugar caffeine: Yes during the past year weight has: remained stable Dental Care, Regularly: No Physical Activity Frequency: Daily Seatbelt Use: never Sunscreen Use: No Assistive Devices: Oxygen - Continuous Allergies Allergies Allergy/AdvReac Type Severity Reaction Status Date / Time No Known Allergies Allergy Unverified 10/28/22 22:40 Home Meds Home Medications Medication Instructions Recorded Confirmed acetaminophen 500 mg tablet 750 mg PO Q6H PRN Pain 09/04/22 10/28/22 (Tylenol Extra Strength) Previous Rx's Medication Instructions Recorded blood sugar diagnostic (OneTouch #100 ea 09/04/22 Verio test strips) lancets 30 gauge (OneTouch Delica #200 ea 09/04/22 Plus Lancet) metformin 500 mg tablet,extended 1,000 mg PO BID #120 tabs 09/15/22 release 24 hr Results & Data (ED) Vital Signs Vital Signs - 24 hr 10/28/22 18:27 10/28/22 20:20 10/28/22 21:23 Temperature 36.6 C Temperature Source Temporal Artery Scan Pulse Rate 108 H 103 H Pulse Rate [Apical] 104 H Pulse Rhythm [Apical] Regular Pulse Strength [Apical] Normal Respiratory Rate 24 22 24 Respiratory Effort / Characteristics Non-Labored Spontaneous Non-Labored Respiratory Depth Normal Normal Respiratory Pattern Regular Regular Blood Pressure 189/113 H Blood Pressure [Right Arm] 149/103 H Blood Pressure Mean 138 Blood Pressure Mean [Right Arm] 118 Blood Pressure Position Sitting Blood Pressure Position [Right Arm] Lying Pulse Oximetry 91 95 96 Oxygen Delivery Method Room Air Room Air Room Air Sepsis Recent Fever Within 48 Hours No Sepsis New/Unexplained Change in Mental Status N/A Sepsis Action Taken by Nursing No Action Required 10/28/22 21:23 10/28/22 21:10/28/22 22:00 Temperature Temperature Source Pulse Rate Pulse Rate [Apical] 105 H Pulse Rhythm [Apical] Regular Pulse Strength [Apical] Normal Respiratory Rate 24 24 Respiratory Effort / Characteristics Non-Labored Non-Labored Respiratory Depth Normal Respiratory Pattern Regular Blood Pressure Blood Pressure [Right Arm] 101/74 Blood Pressure Mean Blood Pressure Mean [Right Arm] 83 Blood Pressure Position Blood Pressure Position [Right Arm] Lying Pulse Oximetry 96 93 Oxygen Delivery Method Room Air Room Air Room Air Sepsis Recent Fever Within 48 Hours Sepsis New/Unexplained Change in Mental Status Sepsis Action Taken by Nursing Laboratory Data 10/28/22 20:20 10/28/22 20:20 Lab Results 10/28/22 10/28/22 10/28/22 Range/Units 20:20 20:20 20:20 WBC 10.72 (4.8-10.8) K/ul RBC 5.51 (4.63-6.08) M/uL Hgb 15.2 (14.0-18.0) g/dl Hct 46.0 (40.1-51.0) % MCV 83.5 (80.0-100.0) fL MCH 27.6 (25.0-34.0) pg MCHC 33.0 (32.0-36.0) g/dL RDW Std Deviation 42.7 (36.4-46.3) fL RDW Coeff of Nydia 14.0 (11.5-14.5) % Plt Count 247 (130-400) K/uL MPV 9.5 (9.4-12.4) fL Immature Gran % (Auto) 0.7 % Neut % (Auto) 63.1 % Lymph % (Auto) 27.1 % [place] % (Auto) 6.4 % Eos % (Auto) 2.1 % Baso % (Auto) 0.6 % Neut # (Auto) 6.76 H (1.4-6.5) K/uL Lymph # (Auto) 2.91 (1.2-3.4) K/uL [place] # (Auto) 0.69 (0.24-0.82) K/uL Eos # (Auto) 0.22 (0-0.50) K/uL Baso # (Auto) 0.06 (0-0.2) K/uL Immature Gran # (Auto) 0.08 H (0.00-0.02) K/uL PT 11.4 (9.0-12.0) Seconds INR 1.1 (0.9-1.1) APTT 26.7 (21.0-31.0) Seconds PTT Ratio 1.0 Sodium 139 (136-145) mmol/L Potassium 3.7 (3.5-5.1) mmol/L Chloride 101 (98-107) mmol/L Carbon Dioxide 26 (21-32) mmol/L Anion Gap 12 H (3-11) BUN 12 (6-23) mg/dl Creatinine 0.56 L (0.6-1.4) mg/dl Est Cr Clr Drug Dosing 294.3 ml/min Est GFR ( Amer) > 150.0 ml/min Est GFR (Non-Af Amer) 132.1 ml/min BUN/Creatinine Ratio 21.4 H (10-20) Glucose 154 H (70-99(Fasting)) mg/dl Calcium 9.5 (8.5-10.1) mg/dl Magnesium 1.5 L (1.7-2.4) mg/dl Total Bilirubin 0.7 (0.2-1.0) mg/dl AST 33 (13-39) U/L ALT 68 H (7-52) U/L Alkaline Phosphatase 78 (34-104) U/L Troponin I High Sens (0-20) pg/ml B-Natriuretic Peptide (0-100) pg/ml Total Protein 8.1 (6.0-8.3) gm/dl Albumin 4.0 (3.4-5.0) gm/dl Globulin 4.1 H (2.5-4.0) gm/dl Albumin/Globulin Ratio 1.0 (0.9-2) SARS-CoV-2, RNA, NAAT (NEGATIVE) 10/28/22 10/28/22 10/28/22 Range/Units 20:20 20:20 21:20 WBC (4.8-10.8) K/ul RBC (4.63-6.08) M/uL Hgb (14.0-18.0) g/dl Hct (40.1-51.0) % MCV (80.0-100.0) fL MCH (25.0-34.0) pg MCHC (32.0-36.0) g/dL RDW Std Deviation (36.4-46.3) fL RDW Coeff of Nydia (11.5-14.5) % Plt Count (130-400) K/uL MPV (9.4-12.4) fL Immature Gran % (Auto) % Neut % (Auto) % Lymph % (Auto) % [place] % (Auto) % Eos % (Auto) % Baso % (Auto) % Neut # (Auto) (1.4-6.5) K/uL Lymph # (Auto) (1.2-3.4) K/uL [place] # (Auto) (0.24-0.82) K/uL Eos # (Auto) (0-0.50) K/uL Baso # (Auto) (0-0.2) K/uL Immature Gran # (Auto) (0.00-0.02) K/uL PT (9.0-12.0) Seconds INR (0.9-1.1) APTT (21.0-31.0) Seconds PTT Ratio Sodium (136-145) mmol/L Potassium (3.5-5.1) mmol/L Chloride (98-107) mmol/L Carbon Dioxide (21-32) mmol/L Anion Gap (3-11) BUN (6-23) mg/dl Creatinine (0.6-1.4) mg/dl Est Cr Clr Drug Dosing ml/min Est GFR ( Amer) ml/min Est GFR (Non-Af Amer) ml/min BUN/Creatinine Ratio (10-20) Glucose (70-99(Fasting)) mg/dl Calcium (8.5-10.1) mg/dl Magnesium (1.7-2.4) mg/dl Total Bilirubin (0.2-1.0) mg/dl AST (13-39) U/L ALT (7-52) U/L Alkaline Phosphatase (34-104) U/L Troponin I High Sens 7.5 (0-20) pg/ml B-Natriuretic Peptide 40 (0-100) pg/ml Total Protein (6.0-8.3) gm/dl Albumin (3.4-5.0) gm/dl Globulin (2.5-4.0) gm/dl Albumin/Globulin Ratio (0.9-2) SARS-CoV-2, RNA, NAAT NEGATIVE (NEGATIVE) Administered Medications Heparin Sodium/Dextrose (Heparin Sodium/Dextrose) 25,000 units in 500 mls @ 41 mls/hr IV .[id number] ZEFERINO; Protocol Stop: 11/27/22 21:14 Last Admin: 10/28/22 21:50 Dose: 2,050 units/hr, 41 mls/hr Documented By: RSL Co-signed By: ARMOND Discontinued Medications Heparin Sodium (Porcine) (Heparin Sod (Porcine) 1000 Unit/Ml) 1 units IV NOW ONE Stop: 10/28/22 21:15 Last Admin: 10/28/22 21:50 Dose: 9,000 units Documented By: RSScarlet Co-signed By: ARMOND Heparin Sodium/Dextrose (Heparin Iv Adult Wt-Based Standard With Bolus Protocol) 1 each IV NOW STA; Protocol Stop: 10/28/22 21:00 Last Admin: 10/28/22 21:50 Dose: Not Given Documented By: ENRICO Ioversol (Optiray 320 500ml) 108 ml IV ONCE ONE Stop: 10/28/22 20:50 Last Admin: 10/28/22 20:50 Dose: 108 ml Documented By: MOIRA Imaging Data Radiologist's Impression: Venous Doppler Study 10/28/22 18:34 RIGHT LOWER EXTREMITY VENOUS DOPPLER CLINICAL HISTORY: Right lower extremity pain. Shortness of breath. COMPARISON STUDY: No previous studies for comparison. TECHNIQUE: Sonography of the deep venous system of the right lower extremity was performed. Compression and augmentation were evaluated. FINDINGS: Extensive deep venous thrombus within the right lower extremity is noted. This is likely acute. Vessels appear expanded. There is thrombus within the right superficial femoral and popliteal veins. Deep venous thrombus within the right calf vessels is noted. There is also superficial thrombus within several right popliteal fossa veins. IMPRESSION: Extensive deep venous thrombus within the right lower extremity. ACT 112: Negative or not required by law. Electronically signed by: Kiran De Leon M.D. 10/28/2022 8:06 PM Chest CTA 10/28/22 20:33 CT ANGIOGRAPHY OF THE CHEST, PULMONARY EMBOLUS PROTOCOL CLINICAL HISTORY: sob + clots in lower extremity COMPARISON STUDY: Chest CT September 08, 2021 and chest radiograph September 06, 2021. TECHNIQUE: Following IV administration of 108 mL of Optiray, helical axial images of the chest were obtained utilizing the pulmonary embolus protocol. Ma ximal intensity projections and sagittal and coronal reformats were viewed on an independent 3D workstation. IV contrast was administered without complication. Automated exposure control was utilized for the study. A dose lowering technique was utilized adhering to the principles of ALARA. CT DOSE: 855.75 mGy.cm FINDINGS: There are extensive acute bilateral pulmonary emboli, including a saddle embolus. Emboli are noted throughout the lobar and segmental branches of both lungs. There is mild dilatation of the central pulmonary arteries. In addition, there is dilatation of the right heart chambers with leftward bowing of the interventricular septum. No pericardial effusion. The heart is mildly enlarged. There is no pneumothorax or pleural effusion. There is no pulmonary infarct. Bony thorax is unremarkable. Hepatic steatosis is incidentally noted. IMPRESSION: Extensive acute bilateral pulmonary emboli, including a saddle embolus. CT findings consistent with right heart strain. Findings discussed with Dr. Cordon at time of dictation. ACT 112: Negative or not required by law. Electronically signed by: Kiran De Leon M.D. 10/28/2022 9:19 PM Discharge Plan Visit Data Chief Complaint: Referred by Doctor Stated Complaint: REF BY DOC,SOB,UNABLE TO R LEG,BLOOD CLOT ED Provider: Mario Cordon Discharge Problem: Pulmonary air embolism, DVT (deep venous thrombosis), Breath shortness Patient Disposition: Admitted As Inpatient Discharge Instructions Interventions: ED Discharge Assessment Last Done: 10/28/22 23:25
[2022-10-28] MEDS: HEPARIN SODIUM/DEXTROSE 25,000 UNITS/500 ML BAG IV SCH (21:50)
--- NOTE | 2022-10-28 22:56 | History & Physical Report ---
Date of Service October 28, 2022 Assessment & Plan (1) Pulmonary embolism: Plan: 37yo male with history of DM and obesity presenting with 1.5 weeks of RLE redness/swelling and pain as well as exertional dyspnea. Patient found to have saddle PE and large RLE DVT. He has been afebrile, mildly tachycardic with HR of 100 - 108bpm, HD stable, presently saturating 93% on room air with no supplemental O2 requirement. He is overall minimally symptomatic, denies chest pain, cough, hemoptysis or syncope. PESI score- Class 1, Shock index =0.7. Evidence of right heart strain commented on imaging. Troponin and BNP are unremarkable. Seemingly unprovoked VTE, no prior history. Family history is unknown. -Admit to PCU -Continue anticoagulation with heparin gtt -Check 2D echo -Thrombolytics should patient decompensate (2) DVT (deep venous thrombosis): Plan: Extensive RLE DVT. Seemingly unprovoked -Continue heparin gtt -Initiate NOAC for 3-6 months -Consider hypercoag workup given extent of VTE (3) Diabetes: Plan: Poorly controlled DM, last Hgb A1C on 09/03/22 = 13.9. PVS=059 presently. Patient is currently on Metformin only. -Hold Metformin while inpatient -Insulin glargine 10u BID with sliding scale F/E/N - Heplock. Avoid aggressive fluid administration. CC diet as tolerated Ppx - Heparin gtt as above Code - Full per discussion with patient Dispo -Admit to PCU History of Present Illness Chief Complaint: saddle PE, RLE DVT Primary Care Provider: MARA Naik David Voss is a 37yo male with history of DM on Metformin and morbid obesity presenting with extensive RLE DVT and saddle PE. Patient reports approximately 1.5 weeks of RLE pain, redness and swelling as well as dyspnea with minimal exertion. He has had occasional dizziness with positional changes. Denies chest pain, cough, hemoptysis or syncope. No prior history of VTE. Patient is adopted therefore does not know his family history. No prolonged immobility or trauma. In the ER patient has been afebrile, tachycardic with HR of 100 - 108bpm. Blood pressure has been stable and adequate. ER Course: Heparin bolus and gtt Allergies Allergy/AdvReac Type Severity Reaction Status Date / Time No Known Allergies Allergy Unverified 10/28/22 22:40 Home Medications Medication Instructions Recorded Confirmed Type acetaminophen 500 mg tablet 750 mg PO Q6H PRN Pain 09/04/22 10/28/22 History (Tylenol Extra Strength) blood sugar diagnostic (PoolTouch #100 ea 09/04/22 10/28/22 Rx Verio test strips) lancets 30 gauge (PoolTouch Delica #200 ea 09/04/22 10/28/22 Rx Plus Lancet) metformin 500 mg tablet,extended 1,000 mg PO BID #120 tabs 09/15/22 10/28/22 Rx release 24 hr Past Med/Surg History Medical History Acute respiratory distress Diabetes Hidradenitis suppurativa of right axilla Obesity Open right arm fracture Pilonidal cyst Pneumonia due to COVID-19 virus Surgery, elective R arm surgery rods and screws in place Surgical History H/O hernia repair History of incision and drainage (09/03/22) Right axilla Family History (Updated 10/29/22 @ 00:15 by Milagro Flanagan DO) Other Family history unknown Foster child Social History Smoking Status: Former smoker Tobacco Type: Cigarettes Age Started Using Tobacco: 11; Age Quit Using Tobacco: 30; packs per day: 2; Tobacco Cessation Education Requested by Patient: No Hx Alcohol Use: No Hx Substance Use: No Preferred Language: Yoruba Communication Ability: Effective Visual Impairment: No Limitations Hearing Ability: Normal Dipping Machine Operator Required: No Beliefs That Will Affect Care: None marital status: Single Current Living Situation: Alone current occupational status: employed 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 How many Children do You have: 1 Other Information That Helps Us Care for You: No Feels Safe at Home: Yes Safety Concerns: Feels Safe At This Time Childhood Exposure to Second-Hand Smoke: No Diet Comment: low sugar caffeine: Yes during the past year weight has: remained stable Dental Care, Regularly: No Physical Activity Frequency: Daily Seatbelt Use: never Sunscreen Use: No Assistive Devices: None Review of Systems Review of Systems: All systems reviewed & are unremarkable except as noted in HPI & below Physical Exam Physical Exam: General: patient resting comfortably, NAD, non-toxic in appearance, AA&O x 4 Skin: warm, dry, intact, no rashes or lesions HEENT: NC/AT, PERRL, EOMI, anicteric sclera, conjunctiva without injection, external ear normal to inspection and nontender, nares patent, moist mucus membranes, dentition intact, no oropharyngeal lesions, neck supple, trachea midline, no LAD, no thyromegaly, no JVD Heart: +S1/S2, regular, tachycardic, no m/r/g Lungs: equal air entry bilaterally, no rales/rhonchi/wheezes Abd: +BS, soft, NT/ND, no masses/organomegaly/ascites Ext: warm, 2+ pulses in UE/LE bilaterally, no clubbing/cyanosis, redness, warmth and tenderness of RLE with increased edema, palpable pulses. Neuro: nonfocal, patient AA&O x 4, speech intact, no facial droop, moving all extremities on command with equal strength 5/5 Results & Data Results & Data ([facility]) Vital Signs (Past 12 Hours) Vital Signs Temp Pulse Pulse Resp BP BP Pulse Ox 10/28/22 21:23 10/28/22 21:23 24 96 10/28/22 21:23 104 H 24 149/103 H 96 10/28/22 20:20 103 H 22 95 10/28/22 18:27 36.6 C 108 H 24 189/113 H 91 O2 Del Method 10/28/22 21:23 Room Air 10/28/22 21:23 Room Air 10/28/22 21:23 Room Air 10/28/22 20:20 Room Air 10/28/22 18:27 Room Air Laboratory Results Laboratory Results WBC 10.72 K/ul (4.8-10.8) 10/28/22 20:20 RBC 5.51 M/uL (4.63-6.08) 10/28/22 20:20 Hgb 15.2 g/dl (14.0-18.0) 10/28/22 20:20 Hct 46.0 % (40.1-51.0) 10/28/22 20:20 MCV 83.5 fL (80.0-100.0) 10/28/22 20:20 MCH 27.6 pg (25.0-34.0) 10/28/22 20:20 MCHC 33.0 g/dL (32.0-36.0) 10/28/22 20:20 RDW Std Deviation 42.7 fL (36.4-46.3) 10/28/22 20:20 RDW Coeff of Nydia 14.0 % (11.5-14.5) 10/28/22 20:20 Plt Count 247 K/uL (130-400) 10/28/22 20:20 MPV 9.5 fL (9.4-12.4) 10/28/22 20:20 Immature Gran % (Auto) 0.7 % 10/28/22 20:20 Neut % (Auto) 63.1 % 10/28/22 20:20 Lymph % (Auto) 27.1 % 10/28/22 20:20 Gem % (Auto) 6.4 % 10/28/22 20:20 Eos % (Auto) 2.1 % 10/28/22 20:20 Baso % (Auto) 0.6 % 10/28/22 20:20 Neut # (Auto) 6.76 K/uL (1.4-6.5) H 10/28/22 20:20 Lymph # (Auto) 2.91 K/uL (1.2-3.4) 10/28/22 20:20 Gem # (Auto) 0.69 K/uL (0.24-0.82) 10/28/22 20:20 Eos # (Auto) 0.22 K/uL (0-0.50) 10/28/22 20:20 Baso # (Auto) 0.06 K/uL (0-0.2) 10/28/22 20:20 Immature Gran # (Auto) 0.08 K/uL (0.00-0.02) H 10/28/22 20:20 PT 11.4 Seconds (9.0-12.0) 10/28/22 20:20 INR 1.1 (0.9-1.1) 10/28/22 20:20 APTT 26.7 Seconds (21.0-31.0) 10/28/22 20:20 PTT Ratio 1.0 10/28/22 20:20 Sodium 139 mmol/L (136-145) 10/28/22 20:20 Potassium 3.7 mmol/L (3.5-5.1) 10/28/22 20:20 Chloride 101 mmol/L (98-107) 10/28/22 20:20 Carbon Dioxide 26 mmol/L (21-32) 10/28/22 20:20 Anion Gap 12 (3-11) H 10/28/22 20:20 BUN 12 mg/dl (6-23) 10/28/22 20:20 Creatinine 0.56 mg/dl (0.6-1.4) L 10/28/22 20:20 Est Cr Clr Drug Dosing 294.3 ml/min 10/28/22 20:20 Est GFR ( Amer) > 150.0 ml/min 10/28/22 20:20 Est GFR (Non-Af Amer) 132.1 ml/min 10/28/22 20:20 BUN/Creatinine Ratio 21.4 (10-20) H 10/28/22 20:20 Glucose 154 mg/dl (70-99(Fasting)) H 10/28/22 20:20 Lactate 1.3 mmol/L (0.4-2.0) 10/28/22 23:24 Calcium 9.5 mg/dl (8.5-10.1) 10/28/22 20:20 Magnesium 1.5 mg/dl (1.7-2.4) L 10/28/22 20:20 Total Bilirubin 0.7 mg/dl (0.2-1.0) 10/28/22 20:20 AST 33 U/L (13-39) 10/28/22 20:20 ALT 68 U/L (7-52) H 10/28/22 20:20 Alkaline Phosphatase 78 U/L (34-104) 10/28/22 20:20 Troponin I High Sens 7.5 pg/ml (0-20) 10/28/22 20:20 B-Natriuretic Peptide 40 pg/ml (0-100) 10/28/22 20:20 Total Protein 8.1 gm/dl (6.0-8.3) 10/28/22 20:20 Albumin 4.0 gm/dl (3.4-5.0) 10/28/22 20:20 Globulin 4.1 gm/dl (2.5-4.0) H 10/28/22 20:20 Albumin/Globulin Ratio 1.0 (0.9-2) 10/28/22 20:20 SARS-CoV-2, RNA, NAAT NEGATIVE (NEGATIVE) 10/28/22 21:20 Impressions Venous Doppler Study 10/28/22 18:34 RIGHT LOWER EXTREMITY VENOUS DOPPLER CLINICAL HISTORY: Right lower extremity pain. Shortness of breath. COMPARISON STUDY: No previous studies for comparison. TECHNIQUE: Sonography of the deep venous system of the right lower extremity was performed. Compression and augmentation were evaluated. FINDINGS: Extensive deep venous thrombus within the right lower extremity is noted. This is likely acute. Vessels appear expanded. There is thrombus within the right superficial femoral and popliteal veins. Deep venous thrombus within the right calf vessels is noted. There is also superficial thrombus within several right popliteal fossa veins. IMPRESSION: Extensive deep venous thrombus within the right lower extremity. ACT 112: Negative or not required by law. Electronically signed by: Kiran De Leon M.D. 10/28/2022 8:06 PM Chest CTA 10/28/22 20:33 CT ANGIOGRAPHY OF THE CHEST, PULMONARY EMBOLUS PROTOCOL CLINICAL HISTORY: sob + clots in lower extremity COMPARISON STUDY: Chest CT September 08, 2021 and chest radiograph September 06, 2021. TECHNIQUE: Following IV administration of 108 mL of Optiray, helical axial images of the chest were obtained utilizing the pulmonary embolus protocol. Maximal intensity projections and sagittal and coronal reformats were viewed on an independent 3D workstation. IV contrast was administered without complication. Automated exposure control was utilized for the study. A dose lowering technique was utilized adhering to the principles of ALARA. CT DOSE: 855.75 mGy.cm FINDINGS: There are extensive acute bilateral pulmonary emboli, including a saddle embolus. Emboli are noted throughout the lobar and segmental branches of both lungs. There is mild dilatation of the central pulmonary arteries. In addition, there is dilatation of the right heart chambers with leftward bowing of the interventricular septum. No pericardial effusion. The heart is mildly enlarged. There is no pneumothorax or pleural effusion. There is no pulmonary infarct. Bony thorax is unremarkable. Hepatic steatosis is incidentally noted. IMPRESSION: Extensive acute bilateral pulmonary emboli, including a saddle embolus. CT findings consistent with right heart strain. Findings discussed with Dr. Cordon at time of dictation. ACT 112: Negative or not required by law. Electronically signed by: Kiran De Leon M.D. 10/28/2022 9:19 PM ECG Additional Comments: EKG with sinus tachycardia at 103bpm, GO=072, QRS=86, LQr=186, no acute ischemic changes Code Status & VTE Plan VTE Prophylaxis Plan VTE Prophylaxis will be ordered: Yes PG Care Time/CCT Total # of Minutes Spent Total Time Spent with Patient: Total time spent is greater than 50% in coordination of care (as documented) at patient's floor/unit and/or counseling patient: Coding Level of Care Code 22264 INT INP/OBS CARE 3/75MIN Diagnoses Pulmonary embolism I26.99 DVT (deep venous thrombosis) I82.409 Diabetes E11.9
[2022-10-28] MEDS ORDERED: ACETAMINOPHEN 500 MG TAB PO PRN (23:49)
[2022-10-28] MEDS ORDERED: GLUCAGON FOR INJ 1 MG VIAL SQ PRN (23:49)
[2022-10-28] MEDS ORDERED: DEXTROSE 50% 50 ML SYRINGE IV PRN (23:49)
[2022-10-28] MEDS ORDERED: CARBOHYDRATES FOR HYPOGLYCEMIA PO PRN (23:49)
[2022-10-28] MEDS ORDERED: GLUCOSE 40% GEL 15 GM TUBE PO PRN (23:49)
[2022-10-28] MEDS ORDERED: GLUCOSE 10 TAB/TUBE PO PRN (23:49)
[2022-10-29 04:24] LABS: Hematocrit (blood only) 43.1 % (40.1-51.0); Hemoglobin 14.2 g/dl (14.0-18.0); Mean Corpuscular Hemoglobin 27.8 pg (25.0-34.0); Mean Corpuscular Hgb Conc 32.9 g/dL (32.0-36.0); Mean Corpuscular Volume 84.3 fL (80.0-100.0); Mean Platelet Volume 9.4 fL (9.4-12.4); Platelet Count 236 K/uL (130-400); RDW Coefficient of Variation 14.1 % (11.5-14.5); RDW Standard Deviation 43.1 fL (36.4-46.3); Red Blood Count 5.11 M/uL (4.63-6.08); White Blood Count 9.76 K/ul (4.8-10.8)
[2022-10-29 04:38] LABS: BUN Creatinine Ratio 16.9 (10-20); Calcium 9.1 mg/dl (8.5-10.1); Creatinine Clr Calc Pharmacy 279.8 ml/min; Est GFR (African American) 149.9 ml/min; Est GFR (Non-African American) 129.3 ml/min; Potassium 3.9 mmol/L (3.5-5.1)
[2022-10-29 04:47] LABS: Partial Thromboplastin Ratio 1.7
[2022-10-29 05:23] LABS: Partial Thromboplastin Time 46.2 Seconds (21.0-31.0)
--- NOTE | 2022-10-29 07:13 | Hospitalist Progress Note ---
Date of Service October 29, 2022 Assessment & Plan (1) Diabetes: Plan: 37yo male with history of DM and obesity presenting with 1.5 weeks of RLE redness/swelling and pain as well as exertional dyspnea. Patient found to have saddle PE and large RLE DVT. He has been afebrile, mildly tachycardic with HR of 100 - 108bpm, HD stable, presently saturating 93% on room air with no supplemental O2 requirement. He is overall minimally symptomatic, denies chest pain, cough, hemoptysis or syncope. (1) Saddle PE with extensive RLE DVT (unprovoked) -PESI score- Class 1, Shock index =0.7. Evidence of right heart strain commented on imaging. Troponin and BNP are unremarkable. -Seemingly unprovoked VTE, no prior history. Family history is unknown. -echo: EF 55-60&, RVSP elevated -HR around 100. No hypoxia -ordered hypercoagulable work up -Continue anticoagulation with heparin gtt, -considering BMI - will not be a candidate for DOAC. start warfarin. trend INR -anticipate transition to lovenox in am with warfarin if continues to be stable (3) Diabetes: Poorly controlled DM, last Hgb A1C on 09/03/22 = 13.9. VXR=993 on admit. Patient is currently on Metformin only. -Hold Metformin while inpatient -Insulin glargine 10u BID with sliding scale -repeat A1c ordered -will be discharged on metformin and insulin F/E/N - Heplock. Avoid aggressive fluid administration. CC diet as tolerated Ppx - Heparin gtt as above Code - Full per discussion with patient Dispo -Admit to PCU (2) Hyperglycemia: Admission and Anticipated Discharge Date Admission Date: October 28, 2022 Supervising Physician Co-Signing Physician Notes Resident Physician Supervision Note: I independently interviewed and examined the patient and verified the davis history and physical, reviewed labs and image studies and agree with resident findings and care plan. Subjective Patient seen at bedside, calm comfortable cooperative. No SOB on room air, describes significant SOB on ambulation, minor SOB on conversation.Patient states he is normally very active, works 20/hr a day. No prior history of blood clot, unknown family history. No recent long car/plane rides. He understands he is overweight with uncontrolled diabetes, wonders if that contributed to the formation of his blood clot. States only change recently was starting on metformin, which gave his diarrhea. He understands he is on blood thinners, we are looking into genetic causes for hypercoagulation, he will need to be on bl ood thinners upon discharge as well. New worsened leg pain on the left today. Has non healing wound 1 month from cyst removal under right armpit, also nonhealing ulcer under right breast Review of Systems Review of Systems: All systems reviewed & are unremarkable except as noted in HPI & below Physical Exam Constitutional: well developed, well nourished, + morbidly obese, cooperative and comfortable Eyes: PERRL, conjunctivae normal, anicteric sclerae ENMT: external ear and nose normal, oropharynx normal Neck: trachea midline, no thyromegaly Respiratory: normal respiratory effort Auscultation: lungs clear to auscultation bilaterally Cardiovascular: Rate/Rhythm: regular rate and regular rhythm Extremities: + calf tenderness and + edema calves erythematous with thick palpable cords Gastrointestinal (Abdomen): Inspection/Auscultation: abdomen normal to inspection Percussion/Palpation: abdomen soft; abdomen nontender Skin: brown painful nonhealing ulcer noted 1cm diameter under right axilla, 0.5cm under right breast fold Results & Data Results & Data ([facility]) Vital Signs (Past 12 Hours) Vital Signs Temp Pulse Pulse Pulse Resp BP Pulse Ox 10/29/22 03:39 36.8 C 96 H 19 127/84 94 10/29/22 00:00 99 H 10/29/22 00:00 10/29/22 00:00 36.6 C 105 H 16 160/105 H 93 10/28/22 22:00 105 H 24 101/74 93 10/28/22 21:23 10/28/22 21:23 24 96 10/28/22 21:23 104 H 24 149/103 H 96 10/28/22 20:20 103 H 22 95 O2 Del Method 10/29/22 03:39 Room Air 10/29/22 00:00 10/29/22 00:00 Room Air 10/29/22 00:00 Room Air 10/28/22 22:00 Room Air 10/28/22 21:23 Room Air 10/28/22 21:23 Room Air 10/28/22 21:23 Room Air 01/11/23 20:20 Room Air Resident Activity Tracking Resident Involvement: Resident Care Provided Care Provided: Adult Hospital Medicine
[2022-10-29] MEDS: INSULIN ASPART PER UNIT SC SCH ×4 (08:41→20:44)
[2022-10-29] MEDS: LANTUS PER UNIT CHARGE SQ SCH ×2 (08:42→20:48)
--- NOTE | 2022-10-29 09:12 | Electrocardiogram Report ---
Test Reason : Blood Pressure : / mmHG Vent. Rate : 103 BPM Atrial Rate : 103 BPM P-R Int : 136 ms QRS Dur : 086 ms QT Int : 352 ms P-R-T Axes : 066 -10 055 degrees QTc Int : 461 ms Sinus tachycardia Poor R wave progression, consider anterior [place] vs. lead placement vs. LVH Abnormal ECG When compared with ECG of 14-SEP-2021 16:17, No significant change was found Confirmed by Ned Chaney ([id number]) on 10/29/2022 9:11:49 AM Referred By: Norma Wills Confirmed By:Ned Chaney
[2022-10-29] MEDS: HEPARIN SODIUM/DEXTROSE 25,000 UNITS/500 ML BAG IV SCH ×3 (09:44→20:49)
[2022-10-29] MEDS: MAGNESIUM SULFATE / D5W 1 GM/100 ML BAG IV SCH ×2 (11:18→12:59)
[2022-10-29 12:21] LABS: Partial Thromboplastin Ratio 1.5; Partial Thromboplastin Time 39.9 Seconds (21.0-31.0)
--- NOTE | 2022-10-29 12:38 | XCELERA ---
[id number]
[2022-10-29] MEDS ORDERED: WARFARIN SOD 5 MG TAB PO SCH (16:00)
[2022-10-29 16:01] LABS: INR 1.9 (0.9-1.1); Prothrombin Time 19.7 Seconds (9.0-12.0)
[2022-10-29 21:42] LABS: Partial Thromboplastin Ratio 1.6; Partial Thromboplastin Time 42.8 Seconds (21.0-31.0)
[2022-10-30 05:07] LABS: INR 1.1 (0.9-1.1); Prothrombin Time 11.7 Seconds (9.0-12.0)
[2022-10-30 05:27] LABS: Partial Thromboplastin Ratio 1.7
[2022-10-30 05:41] LABS: BUN Creatinine Ratio 16.9 (10-20); Calcium 8.9 mg/dl (8.5-10.1); Creatinine Clr Calc Pharmacy 279.8 ml/min; Est GFR (African American) 149.9 ml/min; Est GFR (Non-African American) 129.3 ml/min; Magnesium 1.9 mg/dl (1.7-2.4); Potassium 3.7 mmol/L (3.5-5.1)
[2022-10-30 05:46] LABS: Partial Thromboplastin Time 45.8 Seconds (21.0-31.0)
--- NOTE | 2022-10-30 06:55 | Hospitalist Progress Note ---
Date of Service October 30, 2022 Assessment & Plan (1) Diabetes: Plan: 37yo male with history of DM and obesity presenting with 1.5 weeks of RLE redness/swelling and pain as well as exertional dyspnea. Patient found to have saddle PE and large RLE DVT. He has been afebrile, mildly tachycardic with HR of 100 - 108bpm, HD stable, presently saturating 93% on room air with no supplemental O2 requirement. He is overall minimally symptomatic, denies chest pain, cough, hemoptysis or syncope. (1) Saddle PE with extensive RLE DVT (unprovoked) -PESI score- Class 1, Shock index =0.7. Evidence of right heart strain commented on imaging. Troponin and BNP are unremarkable. -Seemingly unprovoked VTE, no prior history. Family history is unknown. -echo: EF 55-60&, RVSP elevated -HR around 100. No hypoxia -ordered hypercoagulable work up -Continue anticoagulation with heparin gtt, -considering BMI - will not be a candidate for DOAC. start warfarin. trend INR -anticipate transition to lovenox in am with warfarin if continues to be stable (3) Diabetes: Poorly controlled DM, last Hgb A1C on 09/03/22 = 13.9. SUJ=[id number] on admit. Patient is currently on Metformin only. -Hold Metformin while inpatient -Insulin glargine 10u BID with sliding scale -repeat A1c ordered -will be discharged on metformin and insulin F/E/N - Heplock. Avoid aggressive fluid administration. CC diet as tolerated Ppx - Heparin gtt as above Code - Full per discussion with patient Dispo -Admit to PCU (2) Hyperglycemia: Admission and Anticipated Discharge Date Admission Date: October 28, 2022 Results & Data Results & Data ([facility]) Vital Signs (Past 12 Hours) Vital Signs Temp Pulse Pulse Resp BP Pulse Ox O2 Del Method 10/30/22 03:41 36.4 C L 91 H 22 136/83 96 Room Air 10/29/22 23:34 93 H 10/29/22 22:46 36.4 C L 85 16 130/96 93 Room Air 10/29/22 19:06 36.4 C L 89 18 139/66 92 Room Air
[2022-10-30] MEDS: HEPARIN SODIUM/DEXTROSE 25,000 UNITS/500 ML BAG IV SCH (07:27)
[2022-10-30] MEDS: INSULIN ASPART PER UNIT SC SCH ×3 (08:56→16:58)
[2022-10-30] MEDS: LANTUS PER UNIT CHARGE SQ SCH (08:57)
[2022-10-30 09:10] LABS: Estimated Average Glucose 321 mg/dl; Hemoglobin A1C 12.8 % (4.5-5.6)
[2022-10-30] MEDS ORDERED: ENOXAPARIN 80 MG/0.8 ML SYR SQ SCH (10:30)
[2022-10-30] MEDS ORDERED: WARFARIN SOD 10 MG TAB PO SCH (16:00)
--- NOTE | 2022-10-30 16:57 | Discharge Summary ---
Date of Service October 30, 2022 Admission HPI Per Admitting Provider David Voss is a 37yo male with history of DM on Metformin and morbid obesity presenting with extensive RLE DVT and saddle PE. Patient reports approximately 1.5 weeks of RLE pain, redness and swelling as well as dyspnea with minimal exertion. He has had occasional dizziness with positional changes. Denies chest pain, cough, hemoptysis or syncope. No prior history of VTE. Patient is adopted therefore does not know his family history. No prolonged immobility or trauma. In the ER patient has been afebrile, tachycardic with HR of 100 - 108bpm. Blood pressure has been stable and adequate. ER Course: Heparin bolus and gtt Admission Exam Per Admitting Provider General: patient resting comfortably, NAD, non-toxic in appearance, AA&O x 4 Skin: warm, dry, intact, no rashes or lesions HEENT: NC/AT, PERRL, EOMI, anicteric sclera, conjunctiva without injection, external ear normal to inspection and nontender, nares patent, moist mucus membranes, dentition intact, no oropharyngeal lesions, neck supple, trachea midline, no LAD, no thyromegaly, no JVD Heart: +S1/S2, regular, tachycardic, no m/r/g Lungs: equal air entry bilaterally, no rales/rhonchi/wheezes Abd: +BS, soft, NT/ND, no masses/organomegaly/ascites Ext: warm, 2+ pulses in UE/LE bilaterally, no clubbing/cyanosis, redness, warmth and tenderness of RLE with increased edema, palpable pulses. Neuro: nonfocal, patient AA&O x 4, speech intact, no facial droop, moving all extremities on command with equal strength 5/5 Principal Diagnosis PE with DVT Discharge Exam Constitutional: well developed, well nourished, + morbidly obese, cooperative and comfortable Eyes: PERRL, conjunctivae normal, anicteric sclerae ENMT: external ear and nose normal, oropharynx normal Neck: trachea midline, no thyromegaly Respiratory: normal respiratory effort Auscultation: lungs clear to auscultation bilaterally Cardiovascular: Rate/Rhythm: regular rate and regular rhythm Extremities: + calf tenderness and + edema calves erythematous with thick palpable cords Gastrointestinal (Abdomen): Inspection/Auscultation: abdomen normal to inspection Percussion/Palpation: abdomen soft; abdomen nontender Skin: brown painful nonhealing ulcer noted 1cm diameter under right axilla, 0.5cm under right breast fold Discharge Data Allergies Allergy/AdvReac Type Severity Reaction Status Date / Time No Known Allergies Allergy Unverified 10/28/22 22:40 Consultations 10/28/22 21:07 ED Decision to Admit Stat 10/30/22 10:23 coag clinic [Consult Anticoagulation Clinic] Routine Ordered Studies 10/28/22 18:34 US venous doppler LE RT Stat 10/28/22 20:33 CT angio chest PE protocol Stat Hospital Course (1) Pulmonary embolism: 37yo male with history of DM and obesity presenting with 1.5 weeks of RLE redness/swelling and pain as well as exertional dyspnea. Patient found to have saddle PE and large RLE DVT. (1) Saddle PE with extensive RLE DVT (unprovoked) -PESI score- Class 1, Shock index =0.7. Evidence of right heart strain commented on imaging. Troponin and BNP are unremarkable. -Seemingly unprovoked VTE, no prior history. Family history is unknown. -echo: EF 55-60&, RVSP elevated -ordered hypercoagulable work up, still pending -Was started on heparin drip and transitioned to lovenox 160mgs twice a day on day of discharge -Warfarin initiated day before discharge. -Outpatient anticoagulation clinic appointment set up - apt on 11/11/2022 -discharge on Warfarin 1mg daily, lovenox 160mg BID repeat INR wednesday follow up with PCP -PCP to manage INR until seen at the coagulation clinic on 11/11/2022 (3) Diabetes: Poorly controlled DM, last Hgb A1C on 09/03/22 = 13.9. AAT=651 on admit. Patient is currently on Metformin only. -repeat A1c 12.8 -will be discharged on metformin and insulin 10untis bid. -diabetes education provided (2) DVT (deep venous thrombosis): (3) Diabetes: (4) Hyperglycemia: Total Time Total Time Spent Total Time Spent (In Minutes): see attending attestation Discharge Plan Discharge Items Patient Disposition: Home - Self-Care Reason For Visit: SADDLE PE, RLE DVT Discharge Diagnosis: Saddle PE with DVT Activity: Resume your previous activity Non-emergency contact: Primary Care Provider Call non-emergency contact if: you have any medication questions, your symptoms worsen and your pain is concerning for you Follow-up/Referrals: Jaylene Hawkins MD, PhD [Pathologist] - 11/02/22 2:00 pm (Anticoagulation clinic. ) Norma Wills CRNP [Primary Care Provider] - (web site designer will call wednesday) Diet: Carb Consistent or DM2 Ambulatory Orders: Prothrombin Time INR (Routine) Timeframe: 2 Days Location: Determined by Patient Ordered By: Nicole Orlando Attending Provider Instructions: You were admitted to the hospital for a pulmonary embolism due to deep vein thrombosis of your legs. You were treated with blood thinners. We will arrange follow up for your with the anticoagulation clinic for oysterman management of your blood thinners. In the mean time, please follow up with your PCP on Wednesday so that we can double check than your blood thinners are working appropriately. You will be on 2 blood thinners, lovenox and warfarin, until we are sure your warfarin is at the correct dosage. After that, we can discontinue your lovenox. The shortness of breath and leg pain that you feel from your blood clots will slowly decrease over time as your anticoagulants work. Unfortunately, this may take weeks to months. Please avoid grapefruit, cranberry juice, and foods high in vitamin K while on warfarin. Please have your labs drawn for INR check Wednesday A discharge summary will be sent to your primary care physician to ensure continuity of care. Please bring this discharge summary with you to your next office appointment so that your provider can review it at that time. Follow-up appointments: Make a follow-up appointment with your PCP for Wednesday. It is very important that you follow up with them shortly after discharge from the hospital. We have requested a follow-up appointment with the anticoagulation clinic. Keep all your follow-up appointments as already scheduled. If you cannot make an appointment, notify your provider. Medications: Your medication list has been reviewed and reconciled upon discharge to ensure accuracy and continuity of care. An updated list of all your medications is included with your hospital discharge paperwork. Please review this list closely, and make note of any changes. * We sent a new medication called Warfarin to your pharmacy. Take Warfarin 10mg one tablet daily. * We sent a new medication called Lovenox to your pharmacy. Use Lovenox 2 vials (total 160mg) twice a day. Take your medications as instructed; do not skip a dose of your medicines. Make sure all of your doctors know every medicine you are taking (including faks-sak-chpdqee medicines, vitamins, and supplements). Call your primary care provider before taking any new medicines (including iwig-tzg-zmysrsc medicines, vitamins, and supplements), because some of these may interact with your current medications, or may make your symptoms worse. Tell your primary care provider if you cannot afford your medications. CONTACT YOUR PRIMARY CARE PROVIDER if you experience any of the following: Increased difficulty breathing, sudden onset confusion Worsening pain in your legs or arms Difficulty following your treatment plan, or difficulty taking medications CALL 911 OR GO TO THE EMERGENCY DEPARTMENT if you experience any of the following: Sudden, severe abdominal pain or nausea/vomiting Severe chest pain, or chest pain that radiates (moves) to your jaw or arm Sudden, severe shortness of breath or difficulty breathing Thank you for allowing us to participate in your care. Addtl Geological Drafter Provider Instructions: DIABETES RECOMMENDATIONS: - To help get your blood sugar levels into a safer range, a long-acting insulin (Lantus) is being added. - The order is to take Lantus 10 units 2x/day. If you would prefer, you can take the total dose of Lantus (20 units) once daily instead. - Since Lantus lasts for 24 hours, you want to try and take it at the same time every day. - Also recommend you continue to increase the Metformin pill as advised by your outpatient provider. You can add 1 pill (500mg) each week until you reach 4 pills (2000mg) a day. Metformin may be better tolerated if divided and taken 1000mg with breakfast and 1000mg with supper. - Try to check your blood sugar 2x/day. - Try to check before any food in the morning and another time. Feel free to change this other time from day to day (before lunch --> before supper --> before bed). - Please record the results to share with your provider. - The Hospital's diabetes office will call you in 2-3 days to see how you are doing. - In the meantime if you have any questions, please call the diabetes office at [phone]. Take Care!! Pending Studies at Discharge: No Stand-Alone Forms: My [facility], Smoking Cessation Medications and DC Order Prescriptions: New insulin glargine [Lantus Solostar U-100 Insulin] 100 unit/mL (3 mL) insulin pen 10 unit subcut BID Qty: 15 1RF (DME) pen needle, diabetic [Pen Needle] 32 gauge x 5/32" needle See Rx Instructions .Route Qty: 100 1RF Rx Instructions: As directed enoxaparin [Lovenox] 80 mg/0.8 mL Syringe 160 mg subcut Q12H 7 Days Qty: 22.4 0RF warfarin 10 mg Tablet 10 mg PO DAILY@1600 7 Days Qty: 7 1RF Continued acetaminophen [Tylenol Extra Strength] 500 mg tablet 750 mg PO Q6H PRN (Reason: Pain) Rx Instructions: taking 1 1/2 tabs (DME) lancets [OneTouch Delica Plus Lancet] 30 gauge misc See Rx Instructions .Route Qty: 200 1RF Rx Instructions: twice daily (DME) OneTouch Verio test strips Strip See Rx Instructions .Route Qty: 100 5RF Rx Instructions: twice daily metformin 500 mg tablet extended release 24 hr 1,000 mg PO BID Qty: 120 0RF Discharge Orders: Discharge Order (Routine); Ordered 10/30/22 Ordered By: Nicole Chance/Other Patient Handouts: Managing Type 2 Diabetes, Healthy Meals for Diabetes, Diabetes: Meal Planning Admission Data Admit Date/Time: 10/28/22 22:55 Attending Provider: Yun Lal Admit Provider: Milagro Flanagan Primary Care Provider: Norma Wills Other Providers: Milagro Flanagan ; Jaylene Hawkins Other Interventions: Discharge Summary Assessment (RN) Last Done: 10/30/22 17:08 Supervising Physician Co-Signing Physician Notes Resident Physician Supervision Note: I independently interviewed and examined the patient and verified the davis history and physical, reviewed labs and image studies and agree with resident findings and care plan. Resident Activity Tracking Resident Involvement: Resident Care Provided Care Provided: Adult Hospital Medicine
[2022-11-04 16:17] LABS: Anti Cardiolipin Ab IgG <2.0 GPL-U/mL; Anti Cardiolipin Ab IgM 2.2 MPL-U/mL; B2 Glycoprotein IgG <2.0 U/mL (<20.0); B2 Glycoprotein IgM 2.2 U/mL (<20.0); Protein S Functional(Activity) 115 % normal (70-150)
== END 2022-10-30 17:53 | disposition home or self-care (01) | DRG 299 ==
LOC: ED 18:20 → 2S 22:55 → SUATTDRO 22:55 → 2S 23:25